=== PATIENT | male | born 1980 | race African-American/Black ===

== ENCOUNTER → 2016-09-21 | Outpatient (CLI) | payer OTHER ==
[~2016-09-21] MED LIST: BACTRIM DS TAB1 EACH PO; CIPRO500 MG PO; CIPROFLOXACIN500 M1 PO; CLONIDINE0.1 PO; FAMVIR500 MG PO; FOLIC ACID1 MG PO; LEVAQUIN 500 M500 MG PO; LIORESAL 10 MG10 MG PO; MACROBID 100 M100 M1 PO; MEDROL DOSPAK21 TAB PO; NOHOMEMEDICATIONS; NORCO 5-325 TA1 EACH PO; NORVASC 5 MG TAB5 MG PO; PERCOCET 5-3251 EACH PO; VITAMIN B-1100 M1 PO
== END ==
LOC: MRI 09-04 10:29
DX: S30.91XA Unspecified superficial injury of lower back and pelvis, initial encounter (principal); R60.9 Edema, unspecified

== ENCOUNTER → 2016-12-04 | Outpatient (CLI) | payer OTHER | LOC: HYPER 07:09 | DX: L89.313 Pressure ulcer of right buttock, stage 3 (principal); L89.153 Pressure ulcer of sacral region, stage 3; E43 Unspecified severe protein-calorie malnutrition; N31.9 Neuromuscular dysfunction of bladder, unspecified; G82.21 Paraplegia, complete; I10 Essential (primary) hypertension; Z87.891 Personal history of nicotine dependence; Z72.89 Other problems related to lifestyle ==

== ENCOUNTER → 2017-01-01 | Outpatient (CLI) | payer OTHER | LOC: HYPER 07:08 | DX: L89.313 Pressure ulcer of right buttock, stage 3 (principal); E43 Unspecified severe protein-calorie malnutrition; N31.9 Neuromuscular dysfunction of bladder, unspecified; G40.89 Other seizures; G82.21 Paraplegia, complete; I10 Essential (primary) hypertension; F14.90 Cocaine use, unspecified, uncomplicated; F12.90 Cannabis use, unspecified, uncomplicated; Z87.891 Personal history of nicotine dependence; Z72.89 Other problems related to lifestyle ==

== ENCOUNTER → 2017-01-30 | Outpatient (CLI) | payer OTHER | LOC: HYPER 07:03 | DX: L89.313 Pressure ulcer of right buttock, stage 3 (principal); E43 Unspecified severe protein-calorie malnutrition; N31.9 Neuromuscular dysfunction of bladder, unspecified; G40.89 Other seizures; G82.21 Paraplegia, complete; Z87.891 Personal history of nicotine dependence; Z72.89 Other problems related to lifestyle ==

== ENCOUNTER → 2017-03-26 | Outpatient (CLI) | payer OTHER | LOC: HYPER 07:04 | DX: L89.153 Pressure ulcer of sacral region, stage 3 (principal); L89.313 Pressure ulcer of right buttock, stage 3; E43 Unspecified severe protein-calorie malnutrition; N31.9 Neuromuscular dysfunction of bladder, unspecified; G40.89 Other seizures; G82.21 Paraplegia, complete; I10 Essential (primary) hypertension; E46 Unspecified protein-calorie malnutrition; Z87.891 Personal history of nicotine dependence; Z72.89 Other problems related to lifestyle; F12.90 Cannabis use, unspecified, uncomplicated ==

== ENCOUNTER 2017-04-19 12:20 | Emergency (ER) | payer OTHER ==
[~2017-04-19] VITALS: Ht 182.9 cm; Wt 61.2 kg
[2017-04-19] MEDS ORDERED: ROBAXIN 750 MG750 M1 PO (12:54)
[2017-04-19] MEDS ORDERED: OXYCONTIN10 M1 PO (12:54)
[2017-04-19] MEDS ORDERED: NEURONTIN 300300 M1 PO (12:54)
[2017-04-19] MEDS ORDERED: LISINOPRIL20 MG PO (12:55)
[2017-04-19 13:13] LABS: HEMATOCRIT 22.8 % (42.0-52.0); HEMOGLOBIN 7.6 gm/dL (14.0-18.0); MCH 27.8 pg (26.0-34.0); MCHC 33.1 g/dL (28.0-37.0); PLATELET COUNT 423 thou/uL (150-400); RBC 2.72 mil/uL (4.50-6.00); RDW 13.3 % (10.5-14.5); WBC 11.7 thou/uL (4.0-11.0)
[2017-04-19 13:18] LABS: MANUAL DIFF YES
[2017-04-19 13:25] LABS: ANION GAP 8 mmol/L (7-16); BUN 18 mg/dL (7-18); CALCIUM 8.9 mg/dL (8.5-10.1); CHLORIDE 100 mmol/L (98-107); CO2 24 mmol/L (21-32); CREATININE 1.1 mg/dL (0.7-1.3); GLUCOSE 93 mg/dL (74-106); POTASSIUM 4.8 mmol/L (3.5-5.1); SODIUM 132 mmol/L (136-145)
[2017-04-19 13:31] LABS: ABSOLUTE NEUTROPHILS 10.1 thou/uL (1.4-8.2); ALBUMIN 2.1 g/dL (3.4-5.0); ALKALINE PHOSPHATASE 116 U/L (46-116); PLATELET ESTIMATE INCREASED; SGOT 16 U/L (15-37); TOTAL BILIRUBIN 0.3 mg/dL (<0.1-1.0); TOTAL CELL COUNT 100
[2017-04-19 13:41] LABS: DIRECT BILIRUBIN < 0.1 mg/dL (<0.1-0.3); SGPT < 6 U/L (30-65)
[2017-04-19 15:06] LABS: URINE BILIRUBIN NEGATIVE (Negative); URINE BLOOD NEGATIVE (Negative); URINE COLOR YELLOW; URINE GLUCOSE-RANDOM* NEGATIVE (Negative); URINE KETONES NEGATIVE (Negative); URINE LEUKOCYTES-REFLEX 1+ (Negative); URINE PROTEIN (DIPSTICK) TRACE (Negative); URINE SPECIFIC GRAVITY 1.015 (1.003-1.035); URINE UROBILINOGEN 0.2 E.U./dl (0.2-1.0)
[2017-04-19 15:26] LABS: CASTS None Seen /LPF (None Seen); CRYSTALS None Seen /LPF (None Seen); SQUAMOUS None Seen /LPF (0-3); URINE RBC None Seen /HPF (0-2); URINE WBC-REFLEX 6-15 Few /HPF (0-5)
[2017-04-19] MEDS ORDERED: KEFLEX500 MG PO (15:44)
== END 2017-04-19 16:22 | disposition home or self-care (01) ==
LOC: ER 12:20
PROVIDERS: Emergency Medicine
DX: I95.9 Hypotension, unspecified (principal); N39.0 Urinary tract infection, site not specified; I10 Essential (primary) hypertension; Z87.440 Personal history of urinary (tract) infections; F10.99 Alcohol use, unspecified with unspecified alcohol-induced disorder; Z88.1 Allergy status to other antibiotic agents; F14.10 Cocaine abuse, uncomplicated

== ENCOUNTER → 2017-04-23 | Outpatient (CLI) | payer OTHER ==
[~2017-04-23] MED LIST changes: +KEFLEX500 MG PO; +LISINOPRIL20 MG PO; +NEURONTIN 300300 M1 PO; +OXYCONTIN10 M1 PO; +ROBAXIN 750 MG750 M1 PO
== END ==
LOC: HYPER 07:16
DX: L89.313 Pressure ulcer of right buttock, stage 3 (principal); L89.322 Pressure ulcer of left buttock, stage 2; G82.21 Paraplegia, complete; E43 Unspecified severe protein-calorie malnutrition; N31.9 Neuromuscular dysfunction of bladder, unspecified; I10 Essential (primary) hypertension; F14.10 Cocaine abuse, uncomplicated; F16.10 Hallucinogen abuse, uncomplicated; F12.10 Cannabis abuse, uncomplicated; F19.10 Other psychoactive substance abuse, uncomplicated; Z87.891 Personal history of nicotine dependence; Z72.89 Other problems related to lifestyle

== ENCOUNTER → 2017-05-28 | Outpatient (CLI) | payer OTHER ==
[~2017-05-28] MED LIST changes: +HYDROCHLOROTHIA25 M2 PO; +PREDNISONE 10 M10 M1 PO
== END ==
LOC: HYPER 07:08
DX: L89.313 Pressure ulcer of right buttock, stage 3 (principal); L89.322 Pressure ulcer of left buttock, stage 2; E43 Unspecified severe protein-calorie malnutrition; N31.9 Neuromuscular dysfunction of bladder, unspecified; G40.89 Other seizures; G82.21 Paraplegia, complete; Z87.891 Personal history of nicotine dependence; Z72.89 Other problems related to lifestyle

== ENCOUNTER 2017-05-29 18:48 | Emergency (ER) | payer OTHER ==
[~2017-05-29] VITALS: Ht 185.4 cm; Wt 61.2 kg
--- NOTE | ~2017-05-29 | EKG ---
[address] [address] ELECTROCARDIOGRAM REPORT Name: ADOLFO OSPINA Room #: DEP yJotsna#: [id number] Admission: 05/29/17 Attend Phys: Discharge: 05/29/17 Date of : 76 Report #: [id number] THIS REPORT FOR: //name// [facility] ED Test Date: 2017-05-29 Test Time: 19:17:44 Pat Name: ADOLFO OSPINA Department: Room: Gender: Rehab Director: SEKOU : 1980 Requested By: Adolfo Gray Order Number: [id number] MD: Quique Singh Measurements Intervals [place] Rate: 82 P: 75 GA: 134 QRS: 28 QRSD: 84 T: 40 QT: 370 QTc: 432 Interpretive Statements Sinus rhythm No significant abnormality No previous ECG available for comparison Electronically Signed On 05-30-2017 7:41:05 CDT by Quique Singh [email or web address] <ELECTRONICALLY SIGNED> By: Quique Singh MD, [facility] 05/30/17 0741 [id number] 16 Quique Singh MD, FACC /EPI
[~2017-05-29 18:48] MED LIST changes: -HYDROCHLOROTHIA25 M2 PO; -PREDNISONE 10 M10 M1 PO
[2017-05-29] MEDS ORDERED: PREDNISONE 10 M10 M1 PO (19:10)
[2017-05-29 19:40] LABS: BASOPHILS 0.6 % (0.0-2.0); HEMATOCRIT 30.4 % (42.0-52.0); MCH 27.6 pg (26.0-34.0); MCHC 32.9 g/dL (28.0-37.0); MONOCYTES 9.3 % (1.0-8.0); PLATELET COUNT 314 thou/uL (150-400); POLYS 75.1 % (36.0-66.0); RBC 3.62 mil/uL (4.50-6.00); RDW 14.8 % (10.5-14.5); WBC 10.7 thou/uL (4.0-11.0)
[2017-05-29 19:44] LABS: MANUAL DIFF NO
[2017-05-29 19:56] LABS: ANION GAP 6 mmol/L (7-16); BUN 14 mg/dL (7-18); CALCIUM 9.2 mg/dL (8.5-10.1); CHLORIDE 100 mmol/L (98-107); CO2 28 mmol/L (21-32); CREATININE 1.2 mg/dL (0.7-1.3); GLUCOSE 101 mg/dL (74-106); POTASSIUM 3.9 mmol/L (3.5-5.1); SODIUM 134 mmol/L (136-145)
[2017-05-29] MEDS ORDERED: HYDROCHLOROTHIA25 M2 PO (20:03)
[2017-05-29 20:04] LABS: TROPONIN-I < 0.04 ng/mL (<0.04-0.07)
[2017-05-29 20:47] LABS: URINE BILIRUBIN NEGATIVE (Negative); URINE BLOOD 1+ (Negative); URINE COLOR YELLOW; URINE GLUCOSE-RANDOM* NEGATIVE (Negative); URINE KETONES NEGATIVE (Negative); URINE PROTEIN (DIPSTICK) NEGATIVE (Negative); URINE UROBILINOGEN 0.2 E.U./dl (0.2-1.0)
[2017-05-29 20:48] LABS: URINE LEUKOCYTES-REFLEX 3+ (Negative)
[2017-05-29 20:54] LABS: CASTS None Seen /LPF (None Seen); SQUAMOUS >10 Many /LPF (0-3); URINE RBC 3-10 Few /HPF (0-2); URINE WBC-REFLEX >25 Many /HPF (0-5)
[2017-05-29 20:55] LABS: AMORPHOUS URATES Many /LPF (None Seen)
[2017-05-29 20:57] LABS: AMP/METHAMP Negative (Negative); BARBITURATES Negative (Negative); BENZODIAZEPINES Negative (Negative); COCAINE POSITIVE (Negative); METHADONE Negative (Negative); OPIATES POSITIVE (Negative); PCP POSITIVE (Negative); THC Negative (Negative)
== END 2017-05-29 21:21 | disposition home or self-care (01) ==
LOC: ER 18:48
PROVIDERS: Emergency Medicine
DX: G51.0 Bell's palsy (principal); I10 Essential (primary) hypertension; F10.99 Alcohol use, unspecified with unspecified alcohol-induced disorder; Z87.440 Personal history of urinary (tract) infections; Z88.1 Allergy status to other antibiotic agents

== ENCOUNTER → 2017-06-25 | Outpatient (CLI) | payer OTHER ==
[~2017-06-25] MED LIST changes: +HYDROCHLOROTHIA25 M2 PO; +PREDNISONE 10 M10 M1 PO
== END ==
LOC: HYPER 07:02
DX: L89.313 Pressure ulcer of right buttock, stage 3 (principal); L89.322 Pressure ulcer of left buttock, stage 2; G82.21 Paraplegia, complete; F19.10 Other psychoactive substance abuse, uncomplicated; F14.10 Cocaine abuse, uncomplicated; F12.10 Cannabis abuse, uncomplicated; Z72.89 Other problems related to lifestyle; Z87.891 Personal history of nicotine dependence

== ENCOUNTER → 2017-07-23 | Outpatient (CLI) | payer OTHER | LOC: HYPER 07:13 | DX: L89.153 Pressure ulcer of sacral region, stage 3 (principal); E43 Unspecified severe protein-calorie malnutrition; N31.9 Neuromuscular dysfunction of bladder, unspecified; G82.21 Paraplegia, complete; G40.89 Other seizures; I10 Essential (primary) hypertension; Z87.891 Personal history of nicotine dependence; Z72.89 Other problems related to lifestyle ==

== ENCOUNTER 2017-08-06 06:51 | Inpatient (IN) | payer OTHER ==
[~2017-08-06] VITALS: Ht 182.9 cm; Wt 61.2 kg
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
[2017-08-06 16:56] LABS: ABSOLUTE NEUTROPHILS 6.3 thou/uL (1.4-8.2); BASOPHILS 0.7 % (0.0-2.0); HEMATOCRIT 31.7 % (42.0-52.0); HEMOGLOBIN 10.2 gm/dL (14.0-18.0); LYMPHOCYTES 15.5 % (24.0-44.0); MANUAL DIFF NO; MCH 26.9 pg (26.0-34.0); MCHC 32.2 g/dL (28.0-37.0); MCV 83.3 fL (80.0-100.0); MONOCYTES 7.3 % (1.0-8.0); PLATELET COUNT 671 thou/uL (150-400); POLYS 75.5 % (36.0-66.0); RBC 3.81 mil/uL (4.50-6.00); RDW 14.9 % (10.5-14.5); WBC 8.3 thou/uL (4.0-11.0)
[2017-08-06 16:57] VITALS: BP 127/92
[2017-08-06 17:03] LABS: CALCIUM 9.4 mg/dL (8.5-10.1); CREATININE 0.9 mg/dL (0.7-1.3); POTASSIUM 4.4 mmol/L (3.5-5.1)
[2017-08-06 17:09] LABS: ALBUMIN 2.3 g/dL (3.4-5.0); TOTAL BILIRUBIN 0.1 mg/dL (<0.1-1.0); TOTAL PROTEIN 8.2 g/dL (6.4-8.2)
[2017-08-06 19:18] VITALS: BP 113/79
[2017-08-06 22:49] LABS: URINE BILIRUBIN NEGATIVE (Negative); URINE BLOOD TRACE (Negative); URINE COLOR YELLOW; URINE GLUCOSE-RANDOM* NEGATIVE (Negative); URINE KETONES NEGATIVE (Negative); URINE NITRITE POSITIVE (Negative); URINE PROTEIN (DIPSTICK) 1+ (Negative); URINE SPECIFIC GRAVITY 1.025 (1.005-1.035); URINE UROBILINOGEN 0.2 E.U./dl (0.2-1.0)
[2017-08-06 22:56] LABS: SQUAMOUS 4-10 Moderate /LPF (0-3)
[2017-08-06 22:57] LABS: BACTERIA >30 Many /HPF (None Seen); URINE RBC 3-10 Few /HPF (0-2); URINE WBC >25 Many /HPF (0-5)
[2017-08-06 22:58] LABS: CASTS None Seen /LPF (None Seen); CRYSTALS None Seen /LPF (None Seen)
[2017-08-07 03:25] VITALS: BP 122/86
[2017-08-07 08:26] VITALS: BP 109/80
[2017-08-07 16:31] VITALS: BP 87/53
[2017-08-07 19:35] VITALS: BP 100/82
[2017-08-08 03:50] VITALS: BP 122/81
[2017-08-08 06:44] LABS: ABSOLUTE NEUTROPHILS 2.6 thou/uL (1.4-8.2); BASOPHILS 0.8 % (0.0-2.0); EOSINOPHILS 3.5 % (0.0-3.0); HEMATOCRIT 28.7 % (42.0-52.0); HEMOGLOBIN 9.5 gm/dL (14.0-18.0); LYMPHOCYTES 27.5 % (24.0-44.0); MANUAL DIFF NO; MCH 27.6 pg (26.0-34.0); MCHC 33.1 g/dL (28.0-37.0); MCV 83.5 fL (80.0-100.0); PLATELET COUNT 613 thou/uL (150-400); POLYS 58.2 % (36.0-66.0); RBC 3.44 mil/uL (4.50-6.00); RDW 14.9 % (10.5-14.5); WBC 4.5 thou/uL (4.0-11.0)
[2017-08-08 06:57] LABS: CALCIUM 8.7 mg/dL (8.5-10.1); CREATININE 0.9 mg/dL (0.7-1.3); POTASSIUM 4.6 mmol/L (3.5-5.1)
[2017-08-08 08:24] VITALS: BP 107/75
[2017-08-08 16:12] VITALS: BP 107/72
[2017-08-08 20:58] VITALS: BP 112/74
[2017-08-09 05:50] LABS: ABSOLUTE NEUTROPHILS 4.1 thou/uL (1.4-8.2); BASOPHILS 0.7 % (0.0-2.0); EOSINOPHILS 2.5 % (0.0-3.0); HEMOGLOBIN 9.5 gm/dL (14.0-18.0); LYMPHOCYTES 21.2 % (24.0-44.0); MCH 27.4 pg (26.0-34.0); MCHC 32.7 g/dL (28.0-37.0); MCV 83.8 fL (80.0-100.0); MONOCYTES 8.5 % (1.0-8.0); PLATELET COUNT 584 thou/uL (150-400); POLYS 67.1 % (36.0-66.0); RBC 3.45 mil/uL (4.50-6.00); RDW 15.4 % (10.5-14.5); WBC 6.1 thou/uL (4.0-11.0)
[2017-08-09 05:51] LABS: MANUAL DIFF NO
[2017-08-09 06:04] LABS: CALCIUM 8.9 mg/dL (8.5-10.1); POTASSIUM 4.8 mmol/L (3.5-5.1)
[2017-08-09 07:19] VITALS: BP 122/85
[2017-08-09 15:55] VITALS: BP 113/73
[2017-08-09 20:11] VITALS: BP 111/68
[2017-08-10 04:49] VITALS: BP 125/85
[2017-08-10 06:06] LABS: ABSOLUTE NEUTROPHILS 4.6 thou/uL (1.4-8.2); BASOPHILS 0.8 % (0.0-2.0); EOSINOPHILS 2.4 % (0.0-3.0); HEMATOCRIT 29.4 % (42.0-52.0); HEMOGLOBIN 9.5 gm/dL (14.0-18.0); LYMPHOCYTES 23.3 % (24.0-44.0); MCH 27.5 pg (26.0-34.0); MCHC 32.4 g/dL (28.0-37.0); MCV 84.7 fL (80.0-100.0); MONOCYTES 7.2 % (1.0-8.0); PLATELET COUNT 565 thou/uL (150-400); POLYS 66.3 % (36.0-66.0); RBC 3.47 mil/uL (4.50-6.00); RDW 15.6 % (10.5-14.5)
[2017-08-10 06:12] LABS: MANUAL DIFF NO
[2017-08-10 06:26] LABS: CALCIUM 8.8 mg/dL (8.5-10.1); CREATININE 0.9 mg/dL (0.7-1.3); POTASSIUM 4.6 mmol/L (3.5-5.1)
[2017-08-10 07:20] VITALS: BP 116/78
[2017-08-10 08:45] VITALS: BP 116/78
[2017-08-10 15:15] VITALS: BP 120/76
[2017-08-10 20:25] VITALS: BP 127/70
[2017-08-11 07:25] VITALS: BP 115/86
[2017-08-11 15:30] VITALS: BP 121/83
[2017-08-11 19:50] VITALS: BP 121/78
[2017-08-12 05:18] VITALS: BP 112/80
[2017-08-12 07:50] VITALS: BP 122/82
[2017-08-12 16:52] VITALS: BP 107/67
[2017-08-12 19:35] VITALS: BP 104/67
[2017-08-13 05:25] VITALS: BP 119/86
[2017-08-13 07:22] VITALS: BP 124/77
[2017-08-13 15:42] VITALS: BP 98/81
== END 2017-08-13 18:01 | DRG 592 ==
LOC: HYPER 06:51 → 4S 15:34
PROVIDERS: Family Medicine; Nurse Practitioner
DX: L89.214 Pressure ulcer of right hip, stage 4 (principal); E43 Unspecified severe protein-calorie malnutrition; M86.8X6 Other osteomyelitis, lower leg; G82.20 Paraplegia, unspecified; Z68.1 Body mass index [BMI] 19.9 or less, adult; F12.10 Cannabis abuse, uncomplicated; N31.9 Neuromuscular dysfunction of bladder, unspecified; I10 Essential (primary) hypertension; G51.0 Bell's palsy; B95.1 Streptococcus, group B, as the cause of diseases classified elsewhere; B95.61 Methicillin susceptible Staphylococcus aureus infection as the cause of diseases classified elsewhere; B96.6 Bacteroides fragilis [B. fragilis] as the cause of diseases classified elsewhere; Z87.828 Personal history of other (healed) physical injury and trauma; Z99.3 Dependence on wheelchair; Z87.891 Personal history of nicotine dependence; Z93.3 Colostomy status; Z88.1 Allergy status to other antibiotic agents; Z82.49 Family history of ischemic heart disease and other diseases of the circulatory system; Z80.8 Family history of malignant neoplasm of other organs or systems; Z83.3 Family history of diabetes mellitus; Z28.21 Immunization not carried out because of patient refusal
CPT/HCPCS: 10102

== ENCOUNTER 2017-12-02 20:46 | Emergency (ER) | payer OTHER ==
[~2017-12-02] VITALS: Ht 185.4 cm; Wt 61.2 kg
[2017-12-02] MEDS ORDERED: OXYCONTIN20 M1 PO (21:25)
== END 2017-12-02 23:03 | disposition home or self-care (01) ==
LOC: ER 20:46
DX: M25.551 Pain in right hip (principal); G82.20 Paraplegia, unspecified; I10 Essential (primary) hypertension; Z88.1 Allergy status to other antibiotic agents

== ENCOUNTER → 2018-07-28 | Outpatient (CLI) | payer OTHER ==
[~2018-07-28] MED LIST changes: +OXYCONTIN20 M1 PO
== END ==
LOC: HYPER 07-07 07:14
DX: L89.313 Pressure ulcer of right buttock, stage 3 (principal); G82.21 Paraplegia, complete; I10 Essential (primary) hypertension; E46 Unspecified protein-calorie malnutrition; M19.90 Unspecified osteoarthritis, unspecified site; F14.10 Cocaine abuse, uncomplicated; Z87.891 Personal history of nicotine dependence

== ENCOUNTER → 2018-10-27 | Outpatient (CLI) | payer OTHER | LOC: HYPER 07:04 | DX: L89.313 Pressure ulcer of right buttock, stage 3 (principal); E46 Unspecified protein-calorie malnutrition; G82.21 Paraplegia, complete; I10 Essential (primary) hypertension; M19.90 Unspecified osteoarthritis, unspecified site; F14.10 Cocaine abuse, uncomplicated; F12.10 Cannabis abuse, uncomplicated; Z87.891 Personal history of nicotine dependence ==

== ENCOUNTER → 2018-12-29 | Outpatient (CLI) | payer OTHER | LOC: HYPER 06:43 | DX: L89.313 Pressure ulcer of right buttock, stage 3 (principal); G82.21 Paraplegia, complete; I10 Essential (primary) hypertension; M19.90 Unspecified osteoarthritis, unspecified site; F14.10 Cocaine abuse, uncomplicated; F12.10 Cannabis abuse, uncomplicated; Z87.891 Personal history of nicotine dependence ==

== ENCOUNTER 2019-01-16 13:18 | Emergency (ER) | payer OTHER ==
[~2019-01-16] VITALS: Ht 182.9 cm; Wt 61.2 kg
[2019-01-16 14:12] LABS: URINE BILIRUBIN NEGATIVE (Negative); URINE BLOOD 2+ (Negative); URINE COLOR YELLOW; URINE GLUCOSE-RANDOM* NEGATIVE (Negative); URINE KETONES 1+ (Negative); URINE NITRITE-REFLEX NEGATIVE (Negative); URINE PROTEIN (DIPSTICK) 1+ (Negative); URINE UROBILINOGEN 0.2 E.U./dl (0.2-1.0)
[2019-01-16 14:13] LABS: URINE CLARITY HAZY; URINE LEUKOCYTES-REFLEX 3+ (Negative)
[2019-01-16 14:19] LABS: BACTERIA-REFLEX >30 Many /HPF (None Seen); CASTS None Seen /LPF (None Seen); CRYSTALS None Seen /LPF (None Seen); SQUAMOUS None Seen /LPF (0-3); URINE RBC 3-10 Few /HPF (0-2); URINE WBC-REFLEX >25 Many /HPF (0-5)
[2019-01-16 14:33] LABS: HEMATOCRIT 42.5 % (42.0-52.0); MCH 28.3 pg (26.0-34.0); MCV 85.7 fL (80.0-100.0); RBC 4.95 mil/uL (4.50-6.00); RDW 13.7 % (10.5-14.5); WBC 8.7 thou/uL (4.0-11.0)
[2019-01-16 14:40] LABS: CALCIUM 9.8 mg/dL (8.5-10.1); CREATININE 0.9 mg/dL (0.7-1.3); POTASSIUM 3.6 mmol/L (3.5-5.1)
[2019-01-16] MEDS ORDERED: AUGMENTIN 875-1 EACH PO (14:45)
[2019-01-16] MEDS ORDERED: FLOMAX0.4 MG PO (14:45)
[2019-01-16 15:15] VITALS: BP 149/94
== END 2019-01-16 15:15 | disposition home or self-care (01) ==
LOC: ER 13:18
PROVIDERS: Emergency Medicine
DX: N39.0 Urinary tract infection, site not specified (principal); R33.9 Retention of urine, unspecified; G82.20 Paraplegia, unspecified; N31.8 Other neuromuscular dysfunction of bladder; I10 Essential (primary) hypertension; Z88.1 Allergy status to other antibiotic agents

== ENCOUNTER → 2019-01-26 | Outpatient (CLI) | payer OTHER ==
[~2019-01-26] MED LIST changes: +AUGMENTIN 875-1 EACH PO; +FLOMAX0.4 MG PO
== END ==
LOC: HYPER 07:01
DX: L89.313 Pressure ulcer of right buttock, stage 3 (principal); G82.21 Paraplegia, complete; I10 Essential (primary) hypertension; R56.9 Unspecified convulsions; M19.90 Unspecified osteoarthritis, unspecified site; F12.90 Cannabis use, unspecified, uncomplicated; Z87.891 Personal history of nicotine dependence; F19.10 Other psychoactive substance abuse, uncomplicated

== ENCOUNTER → 2019-02-18 | Outpatient (CLI) | payer OTHER | LOC: HYPER 02-10 15:23 | DX: L89.313 Pressure ulcer of right buttock, stage 3 (principal); G82.21 Paraplegia, complete; I10 Essential (primary) hypertension; M19.90 Unspecified osteoarthritis, unspecified site; F19.10 Other psychoactive substance abuse, uncomplicated; Z87.891 Personal history of nicotine dependence ==

== ENCOUNTER 2019-03-04 06:31 | Inpatient (IN) | payer OTHER ==
[~2019-03-04] VITALS: Ht 182.9 cm; Wt 48.3 kg
[2019-03-04 16:25] VITALS: BP 130/92
[2019-03-04 16:58] LABS: ABSOLUTE NEUTROPHILS 6.2 thou/uL (1.4-8.2); BASOPHILS 0.5 % (0.0-2.0); EOSINOPHILS 1.3 % (0.0-3.0); HEMATOCRIT 41.4 % (42.0-52.0); HEMOGLOBIN 13.6 gm/dL (14.0-18.0); MCH 28.4 pg (26.0-34.0); MCHC 32.9 g/dL (28.0-37.0); MCV 86.1 fL (80.0-100.0); MONOCYTES 9.6 % (1.0-8.0); PLATELET COUNT 298 thou/uL (150-400); POLYS 71.6 % (36.0-66.0); RDW 13.6 % (10.5-14.5); WBC 8.6 thou/uL (4.0-11.0)
[2019-03-04 17:15] LABS: ALBUMIN 3.4 g/dL (3.4-5.0); CALCIUM 10.2 mg/dL (8.5-10.1); CREATININE 0.7 mg/dL (0.7-1.3); MAGNESIUM 2.3 mg/dL (1.8-2.4); POTASSIUM 4.8 mmol/L (3.5-5.1); TOTAL BILIRUBIN 0.2 mg/dL (<0.1-1.0); TOTAL PROTEIN 9.1 g/dL (6.4-8.2)
--- NOTE | 2019-03-04 18:03 | NUR ---
PT ARRIVED AT 1645 OLEARY CATH CHANGED AND COLOSTOMY BAG CHANGED WILL COLLECT UA WOUND PICTURES OF ISCHIAL / SACRUM TAKEN. PT SERVED DINNER, TX TO ISCHIAL WITH WET TO DRY. DR GARNETT HERE TO SEE PATIENT.
[2019-03-04 18:28] LABS: URINE BILIRUBIN NEGATIVE (Negative); URINE BLOOD NEGATIVE (Negative); URINE CLARITY CLEAR; URINE COLOR YELLOW; URINE GLUCOSE-RANDOM* NEGATIVE (Negative); URINE KETONES NEGATIVE (Negative); URINE LEUKOCYTES-REFLEX 2+ (Negative); URINE NITRITE-REFLEX NEGATIVE (Negative); URINE PROTEIN (DIPSTICK) NEGATIVE (Negative); URINE UROBILINOGEN 0.2 E.U./dl (0.2-1.0)
[2019-03-04 18:36] LABS: AMORPHOUS PHOSPHATES Moderate /LPF (None Seen); BACTERIA-REFLEX None Seen /HPF (None Seen); COARSE GRANULAR CASTS 0-3 Few /LPF (None Seen); SQUAMOUS 0-3 Few /LPF (0-3); URINE RBC 0-2 Rare /HPF (0-2); URINE WBC-REFLEX 6-15 Few /HPF (0-5)
[2019-03-04 19:39] VITALS: BP 122/86
--- NOTE | 2019-03-05 03:38 | NUR ---
ASSUMED PT CARE 1899. PT ALERT AND ORIENTED. REASSESSMENT COMPLETE, VSS. PRAFO BOOTS APPLIED. PT REPORTS PAIN, SEE EMAR. DONIS N/V. TURNS SELF IN BED. CALL LIGHT AND PERSONAL BELONIONGS WITHIN REACH. WILL CONTINUE POC UNTIL EOS.
[2019-03-05 04:54] VITALS: BP 100/69
--- NOTE | 2019-03-05 07:50 | NUR ---
PATIENT CARE WAS ASSUMED AT 0715.PATIENT IS ALERT AND ORIENTED X4,IT TAKES SOME TIME FOR PATIENT TO PROCESS WHAT IS BEING SAID.PATIENT HAS NO COMPLAINS OF PAIN AT THIS TIME.NO IV ACCESS.IV TEAM WAS CALLED FOR IV START.PATIENT IS ABLE TO TURN ON HIS OWN.PATIENT IS ENCOURAGED TO USE BOOTS TO KEEP HEELS ELEVATED.PT HAS CALL LIGHT,PHONE, AND PERSONAL BELONGINGS WITHIN REACH.
[2019-03-05 08:02] VITALS: BP 137/93
[2019-03-05 08:06] VITALS: BP 74/49
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
--- NOTE | 2019-03-05 14:16 | NUR ---
Nutrition: pt admit with ischial wound. Hx paraplegia, prior flap for wound and diverting colostomy. Weight taken on admit 106# error. Pt reports stable weights around 135#. BMI low at 17.0. Good appetite, eating 100% of meals. Reviewed protein needs. RD will offer Feliberto BID and ensure max/ensure enlive supplements daily. Encouraged using protein supplements at home as pt generally does not do so. Consider low risk with interventions in place.
--- NOTE | 2019-03-05 14:41 | NUR ---
PATIENT WAS VERY UPSET TODAY ABOUT NOT BEING ABLE TO GO OUTSIDE AND SMOKE TODAY.PATIENT WAS EDUCATED ON THE NON-SMOKING FACILITY POLICY.SECURITY HAD TO BE CALLED SEVERAL TIMES TO CALM PATIENT DOWN.PATIENT'S MOTHER WAS CALLED AFTER PATIENT STATED HE WANTED TO SIGN HIMSELF OUT OF THE HOSPITAL.MOTHER TALKED PATIENT INTO STAYING IN THE HOSPITAL AND CALMING DOWN.PATIENT IS CALM AAT THIS TIME, WILL CONTINUE TO MONITOR PATIENT.
[2019-03-05 16:05] VITALS: BP 98/68
[2019-03-05 19:20] VITALS: BP 83/51
[2019-03-06 00:01] VITALS: BP 89/52; BP 98/42
--- NOTE | 2019-03-06 03:30 | NUR ---
ASSUMDE PT CARE 190. PT ALERT AND ORIENTED. REASSESSMENT COMPLETED. VSS. BP LOW, ORDERS FOR 500CC BOLUS, REPEAT SBP <90, REPEAT ORDER FOR 500CC BOLUS. PT REPORTS PAIN, SEE EMAR. DENIES N/V. NEW IV INSERTED. CALL LIGHT WITHIN REACH. WILL OCNTINUE POC UNTIL EOS.
[2019-03-06 04:45] VITALS: BP 90/64
[2019-03-06 07:57] VITALS: BP 95/56
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
[2019-03-06 12:49] VITALS: BP 99/69
--- NOTE | 2019-03-06 13:27 | NUR ---
Assumed care of pt at 0700. Pt a&o x4. Pt underwent I&D procedure this am. Pt back from PACU approx 1300. Wound vac in place. Prn pain meds admnisitered for pain 03/04. Pt eating lunch at this time. Family at bedside. Lopez catheter and colostomy in place. Fall precautions in place. Will continue to monitor and assist with needs.
--- NOTE | 2019-03-06 14:39 | NUR ---
FAXED REFERRAL TO [facility] SPOKE WITH WANDA IN ADM SHE IS COVERING FOR JONATAN IN ADM SHE RECEIVED REFERRAL AND QUYNH WILL POSS. BE ABLE TO DO ONSITE EVAL THIS WEEKEND OR JONATAN WILL SEE PT ON SATURDAY AM. DCP TO FOLLOW.
[2019-03-06 15:48] VITALS: BP 104/65
[2019-03-07 05:03] VITALS: BP 95/54
[2019-03-07 08:22] VITALS: BP 95/59
--- NOTE | 2019-03-07 17:21 | NUR ---
PT ASSESSED AT START OF SHIFT. TURNING Q2HRS. WOUND VAC IN PLACE W/ GOOD SUCTION. C/O GENERALIZED ITCHING -BENEDRYL ORDERED AND GIVEN. PAIN MED HELPING.
[2019-03-07 20:30] VITALS: BP 106/63
[2019-03-08 04:45] VITALS: BP 94/52
--- NOTE | 2019-03-08 04:59 | NUR ---
ASSUMED CARE AT 1900, ASSESSMENT COMPLETED. PT C/O GENERALIZED CRAMPING AND BILATERAL LOWER LEG PAIN; GIVEN NORCO OVERNIGHT. ALSO REPORTS MILD ITCHING, GIVEN PO BENADRYL ONCE OVERNIGHT. DENIES SOB OR NAUSEA. WOUND VAC DRAINING DARK BROWN/RED FLUID, CANNISTER OVER 3/4 FULL. REINFORCED WOUND VAC WITH TWO TEGADERMS IT WAS BECOMING LOOSE AROUND THE UPPER BUTTOCK AREA, LIKELY FROM PT MOVING AROUND AND SCRATCHING. OLEARY DRAINING DARK MORE URINE. NO OTHER CONCERNS, WILL CONTINUE TO MONITOR.
[2019-03-08 07:21] VITALS: BP 94/58
--- NOTE | 2019-03-08 16:24 | NUR ---
PT ASSESSED AT START OF SHIFT. WOUND VAC DC'D PATIENT DSNG CAME DISLOGED FROM HIS MOVING AROUND IN THE BED. WORKED W/ HIM ON LIFTING HIS BODY MORE WHEN MOVES AROUND AND HE IS ABLE TO DO THAT W/O DIFFICULTY HE HAS VERY STRONG UPPER BODY. WET TO DRY DSNG APPLIED AND WOUND VAC OFF -WOUND RN WILL REAPPLY TOMORROW. EATING AND DRINKING WELL. NAPPED SOME THIS AFTERNOON. PAIN MED FOR LEG SPASM PAIN. COLOSTOMY BAG CHANGED AFTER LARGE SOFT BM.
[2019-03-08 17:06] VITALS: BP 91/68
[2019-03-08 20:24] VITALS: BP 97/69
--- NOTE | 2019-03-09 00:37 | NUR ---
PT DRSG TO R IT WAS SOAKED WITH DRAINAGE-THEREFORE CHANGED. PT REPOSITIONS SELF IN BED USING HIS UPPER BODY STRENGTH. REQUIRES MINIMAL ASSIST. COLOSTOMY WITH GOOD OUTPUT. OLEARY TO D/D ALSO WITH DARK YELLOW URINE. PT IS AFEBRILE.BP ON THE LOWER SIDE-PT IS ASYMTOMATIC. CALLS WITH NEEDS.
[2019-03-09 05:03] VITALS: BP 90/61
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
[2019-03-09 07:45] VITALS: BP 104/61
--- NOTE | 2019-03-09 11:19 | NUR ---
ASSESMENT COMPLETED. VSS. A/O. PAIN MANAGED BY MEDS ORDERED. NO NOTED SOA. NO NV. PT RESTING IN BED ABLE TO RESPOSITION SELF- MINIMAL ASSISTANCE. COLOSTOMY APPLIANCE CHANGED BY MARGARETH ROBBINS THIS AM. ANIRUDH TO REINALDO. PT RESTING IN BED. APEPARS COMFORTABLE. NO CONCERNS AT THIS TIME. WILL CONT. TO MONITOR.
--- NOTE | 2019-03-09 12:29 | NUR ---
WOUND CARE FOLLOW UP; ROUNDING WITH KIMMY UI SOFTWARE ENGINEER AND NELI SUPERVISOR ASSEMBLY ROOM. THIS PATIENT IS S/P SURGICAL DEBRIDEMENT OF THE RIGHT ISCHIAL TUBEROSITY WITH PRIMATRIX GRAFT PLACEMENT ON 03/06/2019. THE WOUND BED HAS NO ODOR WITH HEALTH RED TISSE ALTHOUGH BONE IS EXPOSED. RECOMMENDATIONS; CONTINUE CURRENT PLAN OF CARE WITH VAC THERAPY. DISCUSSED WITH ITZEL
--- NOTE | 2019-03-09 14:34 | NUR ---
FAXED REFERRAL TO [facility] SPOKE WITH ADM THEY RECEIVED REFERRAL AND WILL SUBMIT FOR AUTH. FAXED REFERRAL TO [facility] [place] SPOKE WITH LINDA THAT PT MIGHT NEED SKILLED IF NOT ACCEPTED AT [facility]. DCP TO FOLLOW.
[2019-03-09] MEDS ORDERED: HYDROCODON-ACE1 EAC7 PO (15:48)
[2019-03-09] MEDS ORDERED: MIRALAX17 GM PO (15:49)
[2019-03-09] MEDS ORDERED: PROBIOTIC1 EAC1 PO (15:49)
[2019-03-09] MEDS ORDERED: PROTONIX 20 MG20 M1 PO (15:49)
[2019-03-09] MEDS ORDERED: BANOPHEN25 M1 PO (15:49)
[2019-03-09] MEDS ORDERED: ZOSYN 3.3753.375 GM IV (15:50)
--- NOTE | 2019-03-09 15:59 | NUR ---
CARE TEAM WAS NOTIFIED THAT PT IS ACCEPTED TO [facility] THIS DAY. CARE TEAM INDICATED THAT PT IS MEDICALLY STABLE TO DC THERE TODAY. PT IS AWARE AND IS AGREEABLE BUT STARTED COMPLAINING OF CHEST PAIN SHORTLY AFTER BEING INFORMED. CM ARRANGED [facility]SPORT TO TAKE PT TO [place] BETWEEN [phone]. CHART COPY ORDERED. ORDERS TO BE FAXED. REPORT TO BE CALLED TO . NURSE ENGINEERING FACULTY MEMBER CALLED P'S MOTHER TO SEE IF SHE CAN PROTOTYPE ENGINEER MANAGER HIS WHEELCHAIR AND TRANSPORT IT TO [place]. SHE LEFT A VM SHOULD WE NOT HEAR BACK FROM HER WE MAY REQUEST PERMISSION TO HAVE [facility] WC. TESTS WERE ORDERED RELATED TO PT'S CHEST PAIN. AWAITING FURTHER DIRECTION.
--- NOTE | 2019-03-09 16:06 | PATH ---
[facility] [address] [address] PATHOLOGY RPT PROCEDURE Name: ADOLFO OSPINA Room #: 423-1 ADM IN M.R.#: [id number] ������������������ Admission: 03/04/19 ������������������ Date of : 76 Discharge: Report #: [id number] Path Case #: [id number] LCA Accession Number: [id number] . 01 Material submitted: . PART A: pelvic bone - RIGHT ISCHIAL WOUND. Modifiers: right PART B: pelvic bone - RIGHT ISCHIAL BONE. Modifiers: right . 01 Clinical history: . Gluteal decubitus . 02 Diagnosis: A. Right ischial wound, debridement with irrigation: - Skin and subcutaneous tissue with marked acute inflammation, ulceration and fibrinoid degeneration, consistent with debridement tissue. . B. Bone, right ischial bone, debridement: - Fragments of bone with marked acute and chronic osteomyelitis. - Fragments of granulation tissue, compatible with debridement tissue. . (WOODV:liz; 03/09/2019) MBR/03/09/2019 . 02 Electronically signed: . Maureen Washington MD, Pathologist NPI- [id number] . 01 Gross description: . A. The specimen is received in formalin, labeled "Adolfo Ospina, right ischial wound". Received is a segment of pink-silva to yellow-silva soft tissue with attached pink-silva to alcantar-brown, necrotic-appearing skin measuring 11.0 x 6.5 x 1.9 cm in greatest dimensions. The specimen is submitted representatively in cassette A1. . B. The specimen is received in formalin, labeled "Adolfo Ospina, right ischial bone". Received are multiple segments of light silva bone admixed with pink-sivla soft tissue measuring 0.2 x 2.8 x 0.6 cm in aggregate dimensions. The specimen is submitted representatively in cassette B1, following decalcification. (CAA; 03/06/2019) QAC/QAC . 02 Pathologist provided ICD-10: L08.9, L98.499, M86.9 . 02 CPT . [id number], [id number], [id number] [place] [address] PATHOLOGY RPT PROCEDURE Name: ADOLFO OSPINA Room #: 423-1 ADM IN M.R.#: [id number] ������������������ Admission: 03/04/19 ������������������ Date of : 76 Discharge: Report #: [id number] Path Case #: [id number] Specimen Comment: A courtesy copy of this report has been sent to Specimen Comment: [phone], , . Specimen Comment: Report sent to ,DR MELCHOR / DR SHERIDAN Performed at: [address], [place], [place] [id number] MD Claus Lindsey MD Phone: [phone] Performed at: [address] [id number] MD Maureen Washington MD Phone: [phone]
[2019-03-09 16:11] VITALS: BP 102/68
--- NOTE | 2019-03-09 16:27 | NUR ---
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
--- NOTE | 2019-03-09 17:55 | NUR ---
APPROX 1550. PT C/O CHEST PAIN. DATABASE ADMINISTRATION PROJECT MANAGER ACTIVATED SEE FLOWSHEET AND ORDERS. PT TRANSFERRED TO 3 WITH BELONGINGS.
--- NOTE | 2019-03-09 18:05 | NUR ---
Assumed care at approx. 1645 this evening. Patient transferred to [facility] for closer monitoring as patient has been complaining of chest pain. Patient appears to be in no distress. 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
[2019-03-09 19:31] VITALS: BP 129/81
[2019-03-10 04:43] VITALS: BP 119/90
--- NOTE | 2019-03-10 06:43 | NUR ---
PT SHOULD DC TODAY TO [facility] PER CM. FOLLOW POC WITH IVPB ANTIBIOTICS. ORAL PAIN MEDICATION GIVEN 2X. PT HAS VAST AMOUNTS OF URINE OUTPUT WITH 2000+ML. ISOLATION PRECAUTIONS BEING FOLLOWED. PT HAS ABILITY TO TURN HIMSELF AND REFUSES Q2 TURNS. HOURLY ROUNDING.
[2019-03-10 08:04] VITALS: BP 105/70
[2019-03-10 09:37] LABS: HEMATOCRIT 33.4 % (42.0-52.0); HEMOGLOBIN 10.8 gm/dL (14.0-18.0); MCH 28.7 pg (26.0-34.0); MCHC 32.5 g/dL (28.0-37.0); MCV 88.3 fL (80.0-100.0); RBC 3.78 mil/uL (4.50-6.00); RDW 13.6 % (10.5-14.5); WBC 7.7 thou/uL (4.0-11.0)
[2019-03-10 09:41] LABS: CREATININE 0.8 mg/dL (0.7-1.3); POTASSIUM 4.3 mmol/L (3.5-5.1)
[2019-03-10 15:27] VITALS: BP 106/59
--- NOTE | 2019-03-10 15:56 | EKG ---
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 JAMES : 1980 Requested By: Solis White Order Number: [id number] MD: Clay Christine Measurements Intervals [place] Rate: 67 P: 66 NM: 133 QRS: -7 QRSD: 95 T: 24 QT: 386 QTc: 408 Interpretive Statements Sinus rhythm ST elev, probable normal early repol pattern Baseline wander in lead(s) II Compared to ECG 05/29/2017 19:17:44 ST (T wave) deviation now present Electronically Signed On 03-10-2019 15:56:27 CDT by Clay Christine [email or web address] ��������������������������������������������� <ELECTRONICALLY SIGNED> ���������������������������������������� By: Clay Christine MD ��������������������������������������������� 03/10/19 1556 1609 1609 Clay Christine MD /EPI
--- NOTE | 2019-03-10 16:04 | EKG ---
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 : 1980 Requested By: Matilde Haddad Order Number: [id number] MD: Clay Christine Measurements Intervals [place] Rate: 62 P: 82 GA: 145 QRS: 3 QRSD: 105 T: 35 QT: 411 QTc: 418 Interpretive Statements Sinus rhythm ST elev, probable normal early repol pattern Compared to ECG 05/29/2017 19:17:44 ST (T wave) deviation now present Electronically Signed On 03-10-2019 16:04:15 CDT by Clay Christine [email or web address] ��������������������������������������������� <ELECTRONICALLY SIGNED> ���������������������������������������� By: Clay Christine MD ��������������������������������������������� 03/10/19 1604 0823 2 Clay Christine MD /ROYER
--- NOTE | 2019-03-10 16:22 | NUR ---
EMMA reviewed chart and spoke with nursing and attending physician. Pt's discharge yesterday was cancelled due to pt having chest pain. DIRECTOR LIFE SCIENCES initiated. Pt was transferred to from . Nuclear stress test completed this afternoon. Attending physician states if stress test negative, pt can discharge to [facility] today. EMMA updated [facility] liaison, who confirms they are able to accept pt pending stress test results. Pt will need ambulance transportation. Ambulance form faxed to [facility] and placed on pt's chart. Chart copy requested. Awaiting final discharge orders at this time. EMMA is following to assist as needed with discharge planning. [facility]-- [facility]--
--- NOTE | 2019-03-10 20:10 | NUR ---
ASSUMED CARE OF PT AT APPROX 0700. PT IS LAERT AND ORIENTED X4, MONITORED ON TELE AND ABLE TO MAINTAIN 02 SAT >90 ON RA. COMPLAINS OF PAIN THAT IS TREATED WITH PRN PAIN MEDICATION. RECEIVED ORDER FOR DC. COMPLETED DC. PT LEFT VIA [facility] AT APPROX 1930. REPORT CALLED X2 AFTER PATIENT DEPARTURE WITH NO ANSWER. PT HAS MET POC GOALS OF DC.
== END 2019-03-10 20:16 | DRG 580 ==
LOC: HYPER 06:31 → 4E 15:34 → 3W 03-09 17:11
PROVIDERS: Internal Medicine; Nurse Practitioner; ADMIT Internal Medicine
PROC: 0QD20ZZ Extraction of Right Pelvic Bone, Open Approach (ICD-10-PCS; principal; 2019-03-06)
PROC: 0QB20ZZ Excision of Right Pelvic Bone, Open Approach (ICD-10-PCS; principal; 2019-03-06)
PROC: 0QU Lower Bones, Supplement (ICD-10-PCS; principal; 2019-03-06)
DX: L89.154 Pressure ulcer of sacral region, stage 4 (principal); G82.20 Paraplegia, unspecified; N39.0 Urinary tract infection, site not specified; E44.1 Mild protein-calorie malnutrition; Z68.1 Body mass index [BMI] 19.9 or less, adult; M86.68 Other chronic osteomyelitis, other site; L89.314 Pressure ulcer of right buttock, stage 4; R07.9 Chest pain, unspecified; F19.10 Other psychoactive substance abuse, uncomplicated; B96.5 Pseudomonas (aeruginosa) (mallei) (pseudomallei) as the cause of diseases classified elsewhere; I10 Essential (primary) hypertension; G51.0 Bell's palsy; N31.9 Neuromuscular dysfunction of bladder, unspecified; R33.9 Retention of urine, unspecified; Z93.3 Colostomy status; Z82.49 Family history of ischemic heart disease and other diseases of the circulatory system; Z83.3 Family history of diabetes mellitus; Z80.9 Family history of malignant neoplasm, unspecified; Z88.1 Allergy status to other antibiotic agents; Z79.899 Other long term (current) drug therapy; Z99.3 Dependence on wheelchair
CPT/HCPCS: 10779; 10783; 10879; 50010; 50101; 50366; 50386; 50403; 50643; 51412; 56524; 57119; 57120; 57143; 62110; 62900; 70005

== ENCOUNTER 2019-03-21 03:31 | Inpatient (IN) | payer OTHER ==
[~2019-03-21] VITALS: Ht 182.9 cm; Wt 61.2 kg
[2019-03-21 03:31] VITALS: BP 129/98
[~2019-03-21 03:31] MED LIST changes: +BANOPHEN25 M1 PO; +HYDROCODON-ACE1 EAC7 PO; +MIRALAX17 GM PO; +PROBIOTIC1 EAC1 PO; +PROTONIX 20 MG20 M1 PO; +ZOSYN 3.3753.375 GM IV
[2019-03-21 04:35] LABS: BASOPHILS 0.7 % (0.0-2.0); EOSINOPHILS 1.4 % (0.0-3.0); HEMATOCRIT 35.4 % (42.0-52.0); HEMOGLOBIN 11.9 gm/dL (14.0-18.0); LYMPHOCYTES 17.4 % (24.0-44.0); MCH 29.2 pg (26.0-34.0); MCHC 33.7 g/dL (28.0-37.0); MCV 86.8 fL (80.0-100.0); MONOCYTES 9.2 % (1.0-8.0); PLATELET COUNT 419 thou/uL (150-400); POLYS 71.3 % (36.0-66.0); RBC 4.08 mil/uL (4.50-6.00); RDW 13.6 % (10.5-14.5); WBC 8.4 thou/uL (4.0-11.0)
[2019-03-21 04:39] LABS: CREATININE 0.7 mg/dL (0.7-1.3); POTASSIUM 3.7 mmol/L (3.5-5.1)
[2019-03-21 04:45] LABS: ALBUMIN 2.5 g/dL (3.4-5.0); TOTAL BILIRUBIN 0.3 mg/dL (<0.1-1.0); TOTAL PROTEIN 8.2 g/dL (6.4-8.2)
[2019-03-21 04:51] LABS: URINE BILIRUBIN NEGATIVE (Negative); URINE BLOOD TRACE (Negative); URINE CLARITY CLEAR; URINE COLOR YELLOW; URINE GLUCOSE-RANDOM* NEGATIVE (Negative); URINE KETONES NEGATIVE (Negative); URINE PROTEIN (DIPSTICK) TRACE (Negative); URINE UROBILINOGEN 0.2 E.U./dl (0.2-1.0)
[2019-03-21 04:54] LABS: URINE LEUKOCYTES-REFLEX 2+ (Negative); URINE NITRITE-REFLEX POSITIVE (Negative)
[2019-03-21 04:58] LABS: CASTS None Seen /LPF (None Seen); MUCUS 4-6 Moderate strn/LPF (None Seen); SQUAMOUS 4-10 Moderate /LPF (0-3)
[2019-03-21 04:59] LABS: BACTERIA-REFLEX >30 Many /HPF (None Seen); CRYSTALS None Seen /LPF (None Seen); TRANSITIONAL EPITHEL CELL 0-3 Few /LPF (None Seen); URINE RBC 0-2 Rare /HPF (0-2); URINE WBC-REFLEX >25 Many /HPF (0-5); WBC CLUMPS Packed (None Seen)
[2019-03-21 06:19] LABS: AMP/METHAMP Negative (Negative); BARBITURATES Negative (Negative); BENZODIAZEPINES Negative (Negative); COCAINE Negative (Negative); METHADONE Negative (Negative); OPIATES Negative (Negative); PCP POSITIVE (Negative)
[2019-03-21 07:59] VITALS: BP 121/86
[2019-03-21 13:49] VITALS: BP 124/75
[2019-03-21 14:50] LABS: ALBUMIN 2.6 g/dL (3.4-5.0); TOTAL PROTEIN 8.4 g/dL (6.4-8.2)
[2019-03-21 15:20] LABS: TSH 0.332 uIU/mL (0.358-3.740)
--- NOTE | 2019-03-21 18:31 | NUR ---
PT ARRIVED ON UNIT FROM ER AT APPROX. 14:00. ADMISSION ASSESSMENT, HISTORY AND EDUCATION COMPLETE. MED REC COMPLETE AND CONFIRMED WITH PHARMACY ( NO HOME MEDS). CONSULTS CALLED, PHOTO OF WOUND IN CHART. ORDERS IMPLEMENTED, WOUND DRESSING CHANGED. PT TO HAVE PROCEDULRE TOMORROW, CONSENT IS SIGNED AND ON CHART.
[2019-03-21 19:48] VITALS: BP 118/85
--- NOTE | 2019-03-22 03:44 | NUR ---
PATIENT ALERT AND ORIENTED X4. C/O MUSCLE SPASM PAIN AND RESTLESS. ORDER RECEIVED FROM DR. KAHN FOR BACLOFEN WHICH WAS GIVEN WITH SOME RELIEF. MEDICATED FOR PAIN WITH IVP MORPHINE WITH LITTLE RELIEF PER PATIENT. IVF INFUSING W/O COMPLICATION. DRESSING TO BUTTOCK CHANGED DUE TO PATIENTS ACTIVITY MAKING IT LOOSE AND OPEN. PATIENT HAS BEEN NPO SINCE 235803/21/19 PER ORDER FOR HIS PROCEDURE TODAY. PATIENT HAS BEEN REMINDED SEVERAL TIMES TO BE MORE QUIET IN HIS ROOM HE CAN BE HEARD AT THE NURSES STATION WITH THE DOOR CLOSED. WILL MONITOR.
[2019-03-22 03:46] LABS: HEMATOCRIT 32.9 % (42.0-52.0); HEMOGLOBIN 10.7 gm/dL (14.0-18.0); MCH 28.3 pg (26.0-34.0); MCHC 32.6 g/dL (28.0-37.0); MCV 86.7 fL (80.0-100.0); RBC 3.79 mil/uL (4.50-6.00); RDW 13.7 % (10.5-14.5); WBC 6.5 thou/uL (4.0-11.0)
[2019-03-22 03:56] LABS: CALCIUM 8.8 mg/dL (8.5-10.1); CREATININE 0.7 mg/dL (0.7-1.3); MAGNESIUM 1.9 mg/dL (1.8-2.4); POTASSIUM 3.9 mmol/L (3.5-5.1)
[2019-03-22 08:54] VITALS: BP 134/55
[2019-03-22 11:43] LABS: AMP/METHAMP Negative (Negative); BARBITURATES Negative (Negative); BENZODIAZEPINES Negative (Negative); COCAINE Negative (Negative); METHADONE Negative (Negative); OPIATES POSITIVE (Negative); PCP POSITIVE (Negative)
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
[2019-03-22 15:34] VITALS: BP 132/62
[2019-03-22 19:39] VITALS: BP 98/48
--- NOTE | 2019-03-22 19:59 | NUR ---
TO SURGERY VIA CART AT APPROX 10 AM RETURNED APPROX. 1230 TO FLOOR VIA CART-PER REPORT CALLED FROM RECOVERY ROOM SURGERY POSTPONED UNTIL 03/23 AM D/T UDS POSITIVE RESULTS-UPON ARRIVAL TO FLOOR REQUESTING PAIN MEDS FOR LEG PAIN RATED A 10 ON 1-10 SCALE MORPHINE SULFATE 4MG ADMINISTER IV PUSH AT 1300 AND REPEATED AT 1700 WITH VERBALIZED GOOD RESULTS. MOVES SELF FREELY IN BED AND REFUSES Q 2 HR TURNS- DRESSING TO MIDLINE COCYX DRY AND INTACT. [place] CATHETOR PATENT DRAINING CLEAR YELLOW URINE. CHOLOSTOMY BAD WITH SCANT AMOUNT LIQUID STOOL
[2019-03-23 05:57] LABS: HEMATOCRIT 30.8 % (42.0-52.0); HEMOGLOBIN 10.2 gm/dL (14.0-18.0); MCH 29.2 pg (26.0-34.0); MCV 88.3 fL (80.0-100.0); RBC 3.49 mil/uL (4.50-6.00); RDW 13.6 % (10.5-14.5); WBC 5.6 thou/uL (4.0-11.0)
[2019-03-23 06:00] LABS: CALCIUM 8.7 mg/dL (8.5-10.1); CREATININE 0.7 mg/dL (0.7-1.3); MAGNESIUM 1.8 mg/dL (1.8-2.4); POTASSIUM 4.2 mmol/L (3.5-5.1)
--- NOTE | 2019-03-23 06:47 | NUR ---
PATIENT ALERT AND ORIENTED X4. IVF INFUSING W/O COMPLICATION. DRESSING CHANGED DUE TO LEAKAGE. PATIENT HAS BEEN NPO SINCE 2358 ON 03/22/19 FOR SURGERY TODAY. MEDICATED X3 WITH MORPHINE IV AND BACLOFEN X1. FAMILY/FRIENDS AT BEDSIDE IN EARLY EVENING. RESTING QUIETLY.
[2019-03-23 07:49] VITALS: BP 97/61
[2019-03-23 12:30] LABS: AMP/METHAMP Negative (Negative); BARBITURATES Negative (Negative); BENZODIAZEPINES Negative (Negative); COCAINE Negative (Negative); METHADONE Negative (Negative); OPIATES POSITIVE (Negative); PCP POSITIVE (Negative)
--- NOTE | 2019-03-23 16:05 | NUR ---
ASSUMED CARE 0700, ALERT X4, PAIN MANAGED WITH MEDICATION, SURGERY COMPLETED THIS AFTERNOON BY DR RAINES, FOR AN I&D, OSTECTOMY TREATED FOR PAIN POST OP PRIOR TO RETURNING TO ROOM AT 1555. PATIENT ALERT AND CALM AND INTERACTING WITH NURSE AND PARENT. ALLI/TAPE DRESSING INPLACE. RESTARTED IV FLUIDS PER ORDERS. DIET ORDER IN PLACE FOR DINNER. REQUIRED A NEW IV TO RIGHT FORARM PRIOR TO SURGERY INSERTED BY IV TEAM. VS WNL. CALL LIGHT IN REACH. CONTINUE TO MONITOR.
[2019-03-23 17:00] VITALS: BP 122/81
[2019-03-23 17:30] VITALS: BP 121/84
[2019-03-23 18:00] VITALS: BP 113/77
[2019-03-23 18:30] VITALS: BP 133/75
--- NOTE | 2019-03-23 19:38 | O ---
[facility] [place] [address] [address] [place] [address] OPERATIVE REPORT Name: ADOLFO OSPINA Room #: 454-P [facility] IN M.R.#: [id number] Admission: 03/21/19 ������������������ Attend Phys: Solis White MD Discharge: ������������������ Date of : 78 Report #: [id number] THIS REPORT FOR: //name// CC: FAM unknown Solis White DATE OF SERVICE: 03/23/2019 SERVICE: Orthopedics. FACILITY: [facility]. SURGEON: Sukhwinder Rico MD ?? LOGISTICS LEAD: None. PREOPERATIVE DIAGNOSES: 1. 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 2. Septic arthritis, right hip. 3. Osteomyelitis, right femoral head. 4. Paraplegia. POSTOPERATIVE DIAGNOSES: 1. 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 2. Septic arthritis, right hip. 3. Osteomyelitis, right femoral head. 4. Paraplegia. PROCEDURE: 1. Irrigation and debridement down to bone and joint of right septic hip. 2. Resection arthroplasty right hip. COMPLICATIONS: None. ����� ?���� DRAINS: None. SPECIMENS: Femoral head, which was sent for pathology. HISTORY OF PRESENT ILLNESS: The patient is a 38-year-old male with a history of paraplegia and a grade 4 sacral decubitus ulcer that had eroded into the hip joint. He had an attempt at conservative treatment in terms of bony preservation, but this failed, and so plans were made for a more aggressive approach including resection of the femoral head. The CT scan showed air in the joint as well as clear evidence of femoral head erosion. Risks, benefits, [facility] [address] [place] [address] OPERATIVE REPORT Name: ADOLFO OSPINA Room #: 454-P [facility] IN M.R.#: [id number] Admission: 03/21/19 ������������������ Attend Phys: Solis White MD Discharge: ������������������ Date of : 78 Report #: [id number] alternatives and indications of surgery were discussed with him in detail. Risks include but not limited to pain, bleeding, infection, injuring nerves or blood vessels, persistent pain despite surgical intervention, nonhealing, progression of the infection, need for further surgery including revision as well as complications related to anesthesia such as stroke, heart attack, pulmonary complications, thromboembolic disease and . Despite these risks, he wished to proceed. PROCEDURE IN DETAIL: After right lower extremity was correctly identified as the operative site, the patient was taken to the operating room where general anesthesia was induced without complication. He was turned into a prone position with the sacrum facing up. He was padded appropriately. Prophylactic antibiotics were not administered in the OR as he is already on an antibiotic regimen, and these are continued in appropriate fashion. This patient was seen in consultation with Dr. Doni Cee from General Surgery for his approach to treatment of the sacral wound. After the right thigh was prepped and draped in a standard sterile fashion, timeout procedure performed. The wound was explored, and there was a hole going down into the hip joint. A blade was used to incise the fibrinous tissue in line with the femoral neck, and then, the retractors were placed around the femoral neck. A 1 inch osteotome was then used to perform osteotomy on the femoral neck and then the ligamentum teres was incised with the cautery. The femoral head was then delivered out of the wound and inspected. There was arthritis present. There was also erosion of the femoral head from previous debridement as well as osteomyelitis, presumably. The femoral head was passed for pathology. 2 liters of saline was then thoroughly lavaged through the hip joint. The residual pulvinar was removed from the hip and then debridement was completed. A thin layer of bone wax was applied to the exposed portion of the proximal femur at the side of the osteotomy. At this point, the soft tissue envelope was quite mobile and covered the defect well, and then, the procedure was passed to Dr. Doni Cee to perform the sacral debridement. There were no complications on my portion of the case, all counts were recorded as correct. ��������������������������������������������� <ELECTRONICALLY SIGNED> ���������������������������������������� By: Sukhwinder Rico MD ��������������������������������������������� 03/23/19 1938 1516 1543 Sukhwinder Rico MD /nt
[2019-03-23 20:27] VITALS: BP 114/78
--- NOTE | 2019-03-24 02:17 | NUR ---
ASSUMED CARE OF PT AT 1900HRS. PT IS AOX4 AND LETS NEEDS BE KNOWN. SURGICAL WOUND DRESSING PARTIALLY CHANGED AND REINFORCED DUE TO BLEEDING. PT REPORTED MOAPA PAIN AND WAS TREATED WITH PRN PAIN MEDS. NO OTHER S/S OF ACUTE DISTRESS. WILL CONTINUE TO MONITOR.
[2019-03-24 04:51] LABS: HEMATOCRIT 29.6 % (42.0-52.0); HEMOGLOBIN 9.9 gm/dL (14.0-18.0); MCH 28.9 pg (26.0-34.0); MCHC 33.4 g/dL (28.0-37.0); MCV 86.7 fL (80.0-100.0); RBC 3.41 mil/uL (4.50-6.00); RDW 13.1 % (10.5-14.5); WBC 8.1 thou/uL (4.0-11.0)
[2019-03-24 05:00] LABS: CALCIUM 8.8 mg/dL (8.5-10.1); CREATININE 0.6 mg/dL (0.7-1.3); MAGNESIUM 1.9 mg/dL (1.8-2.4); POTASSIUM 4.3 mmol/L (3.5-5.1)
[2019-03-24 07:50] VITALS: BP 126/85
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
--- NOTE | 2019-03-24 10:12 | NUR ---
Nutrition: REC add MVI, ascorbic acid for wound healing. Zinc level pending.
[2019-03-24 14:14] VITALS: BP 115/71
--- NOTE | 2019-03-24 15:07 | NUR ---
WOUND CARE FOLLOW UP; THE RIGHT ISCHIAL TUBEROSITY WOUND IS A HEALTHY, BEEFY RED COLOR TODAY. NO SIGNS OR SYMPTOMS OF INFECTION NOTED TODAY. RECOMMENDATIONS; VAC THERAPY TO START TODAY. DISCUSSED WITH STAFF
--- NOTE | 2019-03-24 15:48 | NUR ---
DISCHARGE PLANNING. ANTICIPATED DISCHARGE TOMORROW OR SATURDAY. LTAC ROCOMMENDED AT DISCHARGE. REFERRAL FAXED TO [facility], FOR LTAC NEEDS. CALL PLACED TO TERESA TO NOTIFY. TERESA TO REVIEW AND NOTIFY CM. UNIT SW AWARE. FOLLOWING TO ASSIST WITH DISCHARGE NEEDS.
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
[2019-03-24 20:03] VITALS: BP 122/85
--- NOTE | 2019-03-24 20:40 | NUR ---
VASCULAR ACCESS NOTE ORDER VERIFIED AND PATIENT CONSENTED FOR PICC LINE PLACEMENT SL PICC PLACED TO R BRACHIAL VEIN PER HOSPITAL P&P WITH US ASSESSMENT VESSEL IS WIDELY PATENT. LIDOCAINE 1% 3ML GIVEN SQ INJECTION. VESSEL CANNULATED WITH ONE ATTEMPT. GUIDEWIRE ADVANCED EASILY. VESSEL DILATED. GUIDEWIRE REMOVED INTACT. 4FR 37CM SL PICC INSERTED WITHOUT RESISTANCE. LINE PLACED TO 36CM INTERNAL AND 1CM EXTERNAL. LINE FLUSHES AND DRAWS EASILY. CXR CONFIRMATION OF PLACEMENT. PICC RELEASED FOR IMMEDIATE USE TO RN. PATIENT TOLERATED PROCEDURE WELL.
--- NOTE | 2019-03-24 21:07 | NUR ---
PATIENT ALERT AND ORIENTED AND PLEASANT AND COOPERATIVE WITH POC. ILLEOSTOMY BAG WAS CHANGED BY PATIENT. PICC LINE PLACED THIS EVENING. PATIENT REQUESTED PAIN MEDICATION 1 TIME TODAY. PATIENT TURNS SELF IN BED.
--- NOTE | 2019-03-25 03:39 | NUR ---
pain controlled this shift. patient requesting for this nurse to push iv pain meds fast on the veins, and was getting upset for this nurse pushing meds slowly.patient educated the need to push iv meds slowly. patient has wound vac, wound vac running, dressing c/d/i/. patient has gandara and ilestomy patient takes care of gandara and ilestomy. patient in bed asleep at this time breathing regular and unlaboured.
[2019-03-25 04:32] VITALS: BP 100/65
[2019-03-25 05:41] LABS: HEMATOCRIT 31.9 % (42.0-52.0); HEMOGLOBIN 10.5 gm/dL (14.0-18.0); MCH 28.6 pg (26.0-34.0); MCV 86.9 fL (80.0-100.0); RBC 3.68 mil/uL (4.50-6.00); RDW 13.8 % (10.5-14.5); WBC 7.3 thou/uL (4.0-11.0)
[2019-03-25 06:07] LABS: CREATININE 0.7 mg/dL (0.7-1.3); MAGNESIUM 1.9 mg/dL (1.8-2.4); POTASSIUM 4.3 mmol/L (3.5-5.1)
[2019-03-25 08:30] VITALS: BP 93/53
[2019-03-25 15:10] VITALS: BP 104/60
--- NOTE | 2019-03-25 15:15 | NUR ---
[facility] IS ABLE TO ACCEPT PT UPON DC. IT IS ANTICPATED THAT PT WILL BE MEDICALLY STABLE TO DC TOMORROW. FACILITY WAS PROVIDED CLINDAMYCIN ORDER SO THAT THEY COULD ORDER IT. CM TO FOLLOW INDICATED WITH DC PLANNING.
[2019-03-25 20:28] VITALS: BP 96/59
--- NOTE | 2019-03-25 20:55 | NUR ---
Assumed pt care this am, FC is draining yellow urine, ileostomy bag changed by the pt. PICC lice care done, able to push medication and draw blood. Wound vac running, dressing pratik and intact. Pain managed with meedication, turned every 2 hours. POC followed, no sgns or verbalizations of distress have been noted.
[2019-03-26 05:57] LABS: HEMATOCRIT 32.7 % (42.0-52.0); HEMOGLOBIN 10.8 gm/dL (14.0-18.0); MCH 28.6 pg (26.0-34.0); MCV 86.7 fL (80.0-100.0); RBC 3.77 mil/uL (4.50-6.00); RDW 13.7 % (10.5-14.5); WBC 8.9 thou/uL (4.0-11.0)
[2019-03-26 06:12] LABS: CALCIUM 9.3 mg/dL (8.5-10.1); CREATININE 0.9 mg/dL (0.7-1.3)
--- NOTE | 2019-03-26 07:24 | NUR ---
A/O, pleasant. patient asked to change the stomy bag, the staff called the well point pumping supervisor, well point pumping supervisor voiced that the central service would be open at 5:30am, asking the staff to contact the CS then. The staff did not get hold of the CS. The day nurse claimed she would change the stomy bag for the patient.
[2019-03-26 08:03] VITALS: BP 125/39
--- NOTE | 2019-03-26 12:28 | NUR ---
[facility] INDICATED THAT THEY HAVE AUTH FOR PT TO ADMIT THIS DAY. CARE TEAM INDICTED PT IS MEDICALLY STABLE TO DISCHARGE. [facility] TRANSPORT IS ARRANGED FOR 1400. CHART COPY MADE. ORDERS TO BE FAXED. REPORT TO BE CALLED TO . PT AND MOTHER ARE AWARE AND AGREEABLE. NO OTHER CM INTERVENTION INDICATED. CASE CLOSED.
[2019-03-26] MEDS ORDERED: PROBIOTIC1 EAC1 PO (12:36)
[2019-03-26] MEDS ORDERED: MIRALAX17 GM PO (12:36)
[2019-03-26] MEDS ORDERED: NEURONTIN 300300 M1 PO (12:36)
[2019-03-26] MEDS ORDERED: PROTONIX 20 MG20 M1 PO (12:36)
[2019-03-26] MEDS ORDERED: LIORESAL 10 MG10 MG PO (12:36)
[2019-03-26] MEDS ORDERED: TYLENOL325 MG PO (12:36)
[2019-03-26] MEDS ORDERED: ENOXAPARIN40 MG/0.1 SUBQ (12:36)
[2019-03-26] MEDS ORDERED: PAXIL10 MG PO (12:36)
[2019-03-26] MEDS ORDERED: CLINDAMYCI600 MG/51 IV (12:36)
[2019-03-26] MEDS ORDERED: CEFEPIME HCL2 GM IV (12:45)
--- NOTE | 2019-03-26 14:42 | NUR ---
DISCHARGE NOTE; THE RIGHT ISCHIAL TUBEROSITY WOUND IS BRIGHT RED, MUCH IMPROBED SINCE ADMISSION. NO S/S OF INFECTION. RECOMMEDNATION; CONTINUE VAC THERAPY. RN PRESENT
--- NOTE | 2019-03-26 20:12 | NUR ---
Assumed pt care this am, ileostomy care done and bag changed. Bend bath and oral care done. FC draining light yellow urine, PICC line patent. POC followed, supplements taken and well tolerated. Pt dc to [facility], report called. Pain managed with medication, VS stable.
== END 2019-03-26 17:00 | DRG 498 ==
LOC: ER 03:31 → EROBS 06:21 → 4W 06:21
PROVIDERS: Emergency Medicine; Hospitalist; Orthopaedic Surgery Sports Medicine; Surgery; ADMIT Internal Medicine
PROC: 0QB60ZZ Excision of Right Upper Femur, Open Approach (ICD-10-PCS; principal; 2019-03-23)
DX: M00.851 Arthritis due to other bacteria, right hip (principal); L89.214 Pressure ulcer of right hip, stage 4; L89.154 Pressure ulcer of sacral region, stage 4; N39.0 Urinary tract infection, site not specified; G82.20 Paraplegia, unspecified; Z68.1 Body mass index [BMI] 19.9 or less, adult; M86.8X8 Other osteomyelitis, other site; E44.0 Moderate protein-calorie malnutrition; I10 Essential (primary) hypertension; F16.10 Hallucinogen abuse, uncomplicated; N31.9 Neuromuscular dysfunction of bladder, unspecified; Z87.891 Personal history of nicotine dependence; Z93.3 Colostomy status; Z79.899 Other long term (current) drug therapy; Z99.3 Dependence on wheelchair; Z88.1 Allergy status to other antibiotic agents; Z83.3 Family history of diabetes mellitus; Z80.8 Family history of malignant neoplasm of other organs or systems; Z82.49 Family history of ischemic heart disease and other diseases of the circulatory system
CPT/HCPCS: 10040; 27000; 50010; 50101; 50386; 50403; 51412; 53078; 56524; 57103; 57119; 57120; 57192; 62110; 62900; 70005

== ENCOUNTER → 2019-05-12 | Outpatient (CLI) | payer OTHER ==
[~2019-05-12] MED LIST changes: +CEFEPIME HCL2 GM IV; +CLINDAMYCI600 MG/51 IV; +ENOXAPARIN40 MG/0.1 SUBQ; +PAXIL10 MG PO; +TYLENOL325 MG PO
== END ==
LOC: HYPER 07:18
DX: L89.313 Pressure ulcer of right buttock, stage 3 (principal); G82.21 Paraplegia, complete; E46 Unspecified protein-calorie malnutrition; I10 Essential (primary) hypertension; M19.90 Unspecified osteoarthritis, unspecified site; F14.10 Cocaine abuse, uncomplicated; F12.90 Cannabis use, unspecified, uncomplicated; Z87.891 Personal history of nicotine dependence

== ENCOUNTER 2019-05-15 00:29 | Emergency (ER) | payer OTHER ==
[~2019-05-15] VITALS: Ht 177.8 cm; Wt 72.6 kg
[2019-05-15 01:17] LABS: HEMATOCRIT 29.4 % (42.0-52.0); HEMOGLOBIN 9.4 gm/dL (14.0-18.0); MCH 26.2 pg (26.0-34.0); MCHC 32.1 g/dL (28.0-37.0); MCV 81.4 fL (80.0-100.0); PLATELET COUNT 604 thou/uL (150-400); RBC 3.61 mil/uL (4.50-6.00); RDW 17.2 % (10.5-14.5); WBC 8.2 thou/uL (4.0-11.0)
[2019-05-15 01:20] LABS: ANION GAP 9 mmol/L (7-16); BUN 7 mg/dL (7-18); CALCIUM 9.3 mg/dL (8.5-10.1); CHLORIDE 97 mmol/L (98-107); CO2 28 mmol/L (21-32); CREATININE 0.8 mg/dL (0.7-1.3); GLUCOSE 93 mg/dL (74-106); POTASSIUM 3.7 mmol/L (3.5-5.1); SODIUM 134 mmol/L (136-145)
[2019-05-15 01:30] LABS: TROPONIN-I <0.06 ng/mL (<0.06)
[2019-05-15 01:44] LABS: AMP/METHAMP Negative (Negative); BARBITURATES Negative (Negative); BENZODIAZEPINES Negative (Negative); COCAINE Negative (Negative); METHADONE Negative (Negative); OPIATES Negative (Negative); PCP POSITIVE (Negative)
[2019-05-15 02:28] LABS: ABSOLUTE NEUTROPHILS 5.6 thou/uL (1.4-8.2)
[2019-05-15 02:39] LABS: ANISOCYTOSIS 1+; PLATELET ESTIMATE INCREASED; POIKILOCYTOSIS 1+
[2019-05-15 03:57] VITALS: BP 129/74
--- NOTE | 2019-05-15 17:26 | EKG ---
[place] [address] [address] [facility] [place] [address] ELECTROCARDIOGRAM REPORT Name: ADOLFO OSPINA Room #: DEP Jyotsna#: [id number] ������������������ Admission: 05/15/19 ������������������ Attend Phys: Discharge: 05/15/19 ������������������ Date of : 76 Report #: [id number] ����������������������������������������������������������������� [id number] THIS REPORT FOR: //name// [facility] ED Test Date: 2019-05-15 Test Time: 01:26:58 Pat Name: ADOLFO OSPINA Department: Room: Gender: Safety Tech: deneen : 1980 Requested By: Adolfo Gray Order Number: [id number] MD: Quique Singh Measurements Intervals [place] Rate: 91 P: 86 WI: 124 QRS: -7 QRSD: 96 T: 49 QT: 444 QTc: 547 Interpretive Statements Sinus rhythm Probable left ventricular hypertrophy Prolonged QT interval No previous ECG available for comparison Electronically Signed On 05-15-2019 17:25:45 CDT by Quique Singh [email or web address] ��������������������������������������������� <ELECTRONICALLY SIGNED> ���������������������������������������� By: Quique Singh MD, [facility] ��������������������������������������������� 05/15/19 1725 0126 0126 Quique Singh MD, FACC /EPI
== END 2019-05-15 03:58 | disposition home or self-care (01) ==
LOC: ER 00:29
PROVIDERS: Emergency Medicine
DX: F16.10 Hallucinogen abuse, uncomplicated (principal); I10 Essential (primary) hypertension; Z88.1 Allergy status to other antibiotic agents

== ENCOUNTER 2019-05-26 06:22 | Emergency (ER) | payer OTHER ==
[~2019-05-26] VITALS: Ht 182.9 cm; Wt 61.2 kg
[2019-05-26] MEDS ORDERED: OXYCODONE HCL10 MG PO (06:29)
[2019-05-26 06:51] LABS: HEMATOCRIT 30.5 % (42.0-52.0); HEMOGLOBIN 9.8 gm/dL (14.0-18.0); MCH 25.5 pg (26.0-34.0); MCV 79.6 fL (80.0-100.0); PLATELET COUNT 460 thou/uL (150-400); RBC 3.84 mil/uL (4.50-6.00)
[2019-05-26 07:01] LABS: ANION GAP 6 mmol/L (7-16); BUN 5 mg/dL (7-18); CALCIUM 9.5 mg/dL (8.5-10.1); CHLORIDE 100 mmol/L (98-107); CO2 31 mmol/L (21-32); CREATININE 0.7 mg/dL (0.7-1.3); GLUCOSE 91 mg/dL (74-106); POTASSIUM 4.1 mmol/L (3.5-5.1); SODIUM 137 mmol/L (136-145)
[2019-05-26 07:10] LABS: TROPONIN-I <0.06 ng/mL (<0.06)
[2019-05-26 07:29] LABS: ABSOLUTE NEUTROPHILS 4.1 thou/uL (1.4-8.2); ATYPICAL LYMPHS 2 %
[2019-05-26 07:31] LABS: ANISOCYTOSIS 1+
[2019-05-26 09:29] VITALS: BP 135/105
--- NOTE | 2019-05-26 14:12 | EKG ---
[place] [address] [address] [facility] [place] [address] ELECTROCARDIOGRAM REPORT Name: ADOLFO OSPINA Room #: DEP Jyotsna#: [id number] Admission: 05/26/19 Attend Phys: Discharge: 05/26/19 Date of : 76 Report #: [id number] THIS REPORT FOR: //name// [facility] ED Test Date: 2019-05-26 Test Time: 06:43:48 Pat Name: ADOLFO OSPINA Department: Room: Gender: Supervisor [employer]: deneen : 1980 Requested By: Sukhwinder Weiner Order Number: [id number] MD: Clay Christine Measurements Intervals [place] Rate: 95 P: 82 MO: 131 QRS: -11 QRSD: 91 T: 30 QT: 351 QTc: 442 Interpretive Statements Sinus rhythm Consider left ventricular hypertrophy Compared to ECG 05/15/2019 01:26:58 Electronically Signed On 05-26-2019 14:12:00 CDT by Clay Christine [email or web address] <ELECTRONICALLY SIGNED> By: Clay Christine MD 05/26/19 1412 0643 0643 Clay Christine MD /ROYER
== END 2019-05-26 09:52 | disposition home or self-care (01) ==
LOC: ER 06:22
PROVIDERS: Emergency Medicine
DX: R06.00 Dyspnea, unspecified (principal); I10 Essential (primary) hypertension; G82.20 Paraplegia, unspecified; Z87.440 Personal history of urinary (tract) infections; Z88.1 Allergy status to other antibiotic agents

== ENCOUNTER 2019-06-03 04:12 | Emergency (ER) | payer OTHER ==
[~2019-06-03] VITALS: Ht 182.9 cm; Wt 59.0 kg
[~2019-06-03 04:12] MED LIST changes: +OXYCODONE HCL10 MG PO
[2019-06-03 04:36] LABS: BASOPHILS 1.2 % (0.0-2.0); HEMATOCRIT 30.9 % (42.0-52.0); HEMOGLOBIN 9.7 gm/dL (14.0-18.0); LYMPHOCYTES 25.1 % (24.0-44.0); MCH 25.3 pg (26.0-34.0); MCHC 31.5 g/dL (28.0-37.0); MCV 80.4 fL (80.0-100.0); MONOCYTES 10.8 % (1.0-8.0); PLATELET COUNT 384 thou/uL (150-400); POLYS 60.9 % (36.0-66.0); RBC 3.84 mil/uL (4.50-6.00); RDW 18.2 % (10.5-14.5); WBC 8.3 thou/uL (4.0-11.0)
[2019-06-03 04:45] LABS: ANION GAP 7 mmol/L (7-16); BUN 9 mg/dL (7-18); CALCIUM 8.7 mg/dL (8.5-10.1); CHLORIDE 99 mmol/L (98-107); CO2 28 mmol/L (21-32); CREATININE 0.9 mg/dL (0.7-1.3); GLUCOSE 92 mg/dL (74-106); POTASSIUM 3.8 mmol/L (3.5-5.1); SODIUM 134 mmol/L (136-145)
[2019-06-03 04:53] LABS: APTT 31.4 Seconds (24.5-32.8); INR 1.1; PROTIME 11.4 Seconds (9.3-11.4)
[2019-06-03 04:54] LABS: ALBUMIN 2.2 g/dL (3.4-5.0); SGOT 13 U/L (15-37); SGPT 10 U/L (30-65); TOTAL BILIRUBIN 0.1 mg/dL (<0.1-1.0); TROPONIN-I <0.06 ng/mL (<0.06)
[2019-06-03] MEDS ORDERED: PREDNISONE 20 M20 M1 PO (05:46)
[2019-06-03] MEDS ORDERED: REFRESH TEARS15 ML OPHTHALMIC (05:54)
[2019-06-03] MEDS ORDERED: REFRESH LACRI-3.5 GM OPHTHALMIC (05:54)
[2019-06-03 06:12] VITALS: BP 141/101
--- NOTE | 2019-06-03 07:42 | EKG ---
[place] [address] [place] [address] ELECTROCARDIOGRAM REPORT Name: ADOLFO OSPINA [id number] Admission: 06/03/19 Attend Phys: Discharge: 06/03/19 Date of : 76 Report #: [id number] THIS REPORT FOR: //name// [facility] ED Test Date: 2019-06-03 Test Time: 04:33:58 Pat Name: ADOLFO OSPINA Department: Room: Gender: Workforce Development Specialist: ANTHONY : 1980 Requested By: Adolfo Gray Order Number: [id number] MD: Quique Singh Measurements Intervals [place] Rate: 81 P: 77 [place]: 131 QRS: -5 QRSD: 94 T: 21 QT: 397 QTc: 461 Interpretive Statements Sinus rhythm Normal tracing Compared to ECG 05/26/2019 06:43:48 No significant changes Electronically Signed On 06-03-2019 7:41:46 CDT by Quique Singh [email or web address] <ELECTRONICALLY SIGNED> By: Quique Singh MD, [facility] 06/03/19 0741 [id number] 0433 Quique Singh MD, FACC /EPI
== END 2019-06-03 07:15 | disposition home or self-care (01) ==
LOC: ER 04:12
PROVIDERS: Emergency Medicine
DX: G51.0 Bell's palsy (principal); I10 Essential (primary) hypertension; Z88.1 Allergy status to other antibiotic agents; Z93.3 Colostomy status; Z87.440 Personal history of urinary (tract) infections; Z87.891 Personal history of nicotine dependence

== ENCOUNTER 2019-06-07 04:41 | Inpatient (IN) | payer OTHER ==
[~2019-06-07] VITALS: Ht 182.9 cm; Wt 59.4 kg
[~2019-06-07 04:41] MED LIST changes: +PREDNISONE 20 M20 M1 PO; +REFRESH LACRI-3.5 GM OPHTHALMIC; +REFRESH TEARS15 ML OPHTHALMIC
[2019-06-07 04:42] VITALS: BP 136/89
[2019-06-07 06:00] LABS: ABSOLUTE NEUTROPHILS 7.5 thou/uL (1.4-8.2); BASOPHILS 0.4 % (0.0-2.0); HEMATOCRIT 30.7 % (42.0-52.0); HEMOGLOBIN 9.5 gm/dL (14.0-18.0); LYMPHOCYTES 21.1 % (24.0-44.0); MCH 24.8 pg (26.0-34.0); MCHC 30.8 g/dL (28.0-37.0); MCV 80.3 fL (80.0-100.0); MONOCYTES 11.6 % (1.0-8.0); PLATELET COUNT 402 thou/uL (150-400); POLYS 65.9 % (36.0-66.0); RBC 3.83 mil/uL (4.50-6.00); RDW 18.3 % (10.5-14.5); WBC 11.3 thou/uL (4.0-11.0)
[2019-06-07 06:09] LABS: CALCIUM 8.2 mg/dL (8.5-10.1); CREATININE 0.6 mg/dL (0.7-1.3); POTASSIUM 3.9 mmol/L (3.5-5.1)
[2019-06-07 06:15] LABS: TOTAL BILIRUBIN 0.4 mg/dL (<0.1-1.0); TOTAL PROTEIN 6.9 g/dL (6.4-8.2)
[2019-06-07 07:03] LABS: URINE BILIRUBIN NEGATIVE (Negative); URINE BLOOD TRACE (Negative); URINE COLOR YELLOW; URINE GLUCOSE-RANDOM* NEGATIVE (Negative); URINE KETONES NEGATIVE (Negative); URINE PROTEIN (DIPSTICK) NEGATIVE (Negative); URINE SPECIFIC GRAVITY 1.015 (1.005-1.035)
[2019-06-07 07:08] LABS: URINE CLARITY HAZY; URINE LEUKOCYTES-REFLEX 2+ (Negative); URINE NITRITE-REFLEX POSITIVE (Negative)
[2019-06-07 07:17] LABS: CASTS None Seen /LPF (None Seen); SQUAMOUS None Seen /LPF (0-3)
[2019-06-07 07:18] LABS: BACTERIA-REFLEX >30 Many /HPF (None Seen); CALCIUM OXALATE 0-3 Few /LPF (None Seen); URINE RBC 0-2 Rare /HPF (0-2)
[2019-06-07 07:56] VITALS: BP 114/74
[2019-06-07 08:32] VITALS: BP 112/78
[2019-06-07 08:55] VITALS: BP 120/76
[2019-06-07 14:45] VITALS: BP 120/77
[2019-06-07 19:11] LABS: AMP/METHAMP Negative (Negative); BARBITURATES Negative (Negative); BENZODIAZEPINES Negative (Negative); COCAINE Negative (Negative); METHADONE Negative (Negative); OPIATES POSITIVE (Negative); PCP POSITIVE (Negative)
[2019-06-07 20:45] VITALS: BP 115/80
[2019-06-08] VITALS: BP 107/75
--- NOTE | 2019-06-08 03:42 | NUR ---
PATIENT AOX4 MAKES NEEDS KNOWN. PAIN CONTROLLED THIS SHIFT. WOUND ON RIGHT HIP WAS DRAINAGE TOO MUCH THIS SHIFT,WOUND BED IS PINK IN COLOR DRESSING DONE THIS SHIFT PER ORDER. PATIENT FEED SNACKS THROUGHOUT THE SHIFT. FALL PRECAUTION IN PLACE. CALL LIGHT WITHIN REACH. PATIENT IN BED ASLEEP AT THIS TIME BREATHING REGULAR AND UNLABOURED.
[2019-06-08 04:19] VITALS: BP 111/77
[2019-06-08 07:55] VITALS: BP 104/82
[2019-06-08 08:11] LABS: HEMATOCRIT 26.7 % (42.0-52.0); HEMOGLOBIN 8.4 gm/dL (14.0-18.0); MCH 24.8 pg (26.0-34.0); MCHC 31.3 g/dL (28.0-37.0); RBC 3.38 mil/uL (4.50-6.00); RDW 18.3 % (10.5-14.5); WBC 8.1 thou/uL (4.0-11.0)
[2019-06-08 08:32] LABS: CALCIUM 8.4 mg/dL (8.5-10.1); CREATININE 0.6 mg/dL (0.7-1.3); POTASSIUM 3.8 mmol/L (3.5-5.1)
[2019-06-08 08:33] LABS: PREALBUMIN 15.4 mg/dL (18.0-35.7)
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
--- NOTE | 2019-06-08 12:02 | NUR ---
dp called "[facility]" [facility] [phone]. Patient on service with them for . DP was calling to inquire how many days they see patient. Rajeev got "Terrell" patient's piano case and bench assembler's voicemail and the mailbox was full, therefore information was not obtained. Will try to call again.
--- NOTE | 2019-06-08 12:48 | NUR ---
ostomy care; POUCH EDGES LOOSE, PT REQUESTED POUCH CHANGE POUCH ON X1 WEEK, NEW POUCH YANY 2 PIECE SYSTEM APPLIED, STOMA PINK VIABLE BUDDED W/ SOFT MUSHY BROWN STOOL PRESENT. PERISTOMAL SKIN INTACT, COOPERATIVE W/ CARE, SUPPLIES PLACED AT BS, WILL CONT TO FOLLOW PRN
--- NOTE | 2019-06-08 14:50 | NUR ---
ALERT X4, IMPATIENT WITH CARES, FREQUENTLY ASKS FOR FOOD AND SODA POP, PAIN MANAGED WITH MEDICATOINS, WOUND CARE COMPLETED, INTOLERANT OF RIGHT IJ, IV REMOVED. IV TEAM NOTIVIED FOR PLACEMENT OF PICC LINE. SURGER WITH DR MUSA TOMORROW. FAL PRECATIONS IN PLACE.
--- NOTE | 2019-06-08 16:33 | NUR ---
4FRSLPICC PLACED FOR LT ABX IN [facility]. CXR REVEALS TIP IN THE DSVC. PLEASE SEE INSERTION NI FOR DETAILS
[2019-06-08 17:00] VITALS: BP 115/79
[2019-06-08 19:42] VITALS: BP 127/78
[2019-06-09 03:42] LABS: HEMATOCRIT 24.8 % (42.0-52.0); HEMOGLOBIN 7.9 gm/dL (14.0-18.0); MCH 25.3 pg (26.0-34.0); MCHC 31.9 g/dL (28.0-37.0); MCV 79.2 fL (80.0-100.0); RBC 3.13 mil/uL (4.50-6.00); RDW 18.1 % (10.5-14.5); WBC 7.8 thou/uL (4.0-11.0)
[2019-06-09 03:56] LABS: CALCIUM 8.2 mg/dL (8.5-10.1); CREATININE 0.8 mg/dL (0.7-1.3); POTASSIUM 4.2 mmol/L (3.5-5.1)
--- NOTE | 2019-06-09 04:06 | NUR ---
ASSUMED CARE OF PT AT 1900HRS. PT IS AOX4 AND LETS NEEDS BE KNOWN. FALL PRECAUTION IN PLACE. PT COMPLAINED OF PAIN AND WAS TREATED WITH PRN PAIN MEDS. PT PLACED NPO AT VT FOR PROCEDURE IN THE AM. VSS AND NO S/S OF ACUTE DISTRESS. WILL CONTINUE TO MONITOR.
[2019-06-09 08:38] VITALS: BP 112/70
--- NOTE | 2019-06-09 09:59 | NUR ---
dp spoke with [facility] phone [phone] fax [phone]. Patient is on service with them and receives just snf.
--- NOTE | 2019-06-09 14:35 | NUR ---
EMMA reviewed chart and spoke with nursing and attending physician. Pt to have I&D this afternoon around 1500. EMMA met with pt at bedside to discuss post-acute plans. Pt has Medicaid in-home services and HH through [facility]. supply chain planner confirmed that pt is currently on service with . EMMA discussed possibility of need LTAC placement for IV abx/wound care and medical mgmt. Pt is agreeable with referral to [facility], where he was recently. EMMA faxed referral to [facility] and notified [facility] liaison of new referral. Awiating input from [facility] at this time. EMMA is following to assist as needed with discharge planning.
[2019-06-09 19:16] VITALS: BP 121/81
[2019-06-09 20:25] VITALS: BP 117/78
--- NOTE | 2019-06-09 20:25 | NUR ---
Received awake on bed. On nothing per orem- pt informed and aware. Vital signs stable. A+Ox4. On room air. With colostomy in place- emptied and output measured and recorded. With gandara in place, draining well- output measured and recorded accordingly. With PICC line at R upper arm- NS at 75cc/hr infusing well. Maintained on isolation- MRSA at wound. Turned regularly. Assisted in ADLs. Schedule for I&D today at 1500- consent signed, pt informed and aware. Seen by Wound nurse Isael; dressing changed prior to procedure. PT paraplegic, checked regularly, turned to sides, assisted in ADLs. Complained of pain, due PRN pain meds given as prescribed. Pt fetched by OR staff at 1600.
[2019-06-09 23:10] VITALS: BP 112/71
[2019-06-10 03:37] VITALS: BP 103/67
--- NOTE | 2019-06-10 06:01 | NUR ---
assumed care of pt @1900. pt was very agitated and irritable with staff. pt was medicated per emar. a&ox4. pt is paraplegic and wheelchair bound. MRSA prec in place. pt had an IND of his sacral ulcer done on 06/09. dressing was saturated with bright red blood and serosanguineous fluid twice overnight, and was changed. pt is able to reposition self. [employer]ANCE WEIGHER was called to get an order for a CBC this am. v/s stable.
[2019-06-10 06:19] LABS: HEMATOCRIT 26.1 % (42.0-52.0); HEMOGLOBIN 8.2 gm/dL (14.0-18.0); MCH 24.5 pg (26.0-34.0); MCHC 31.3 g/dL (28.0-37.0); MCV 78.1 fL (80.0-100.0); RBC 3.34 mil/uL (4.50-6.00); RDW 18.6 % (10.5-14.5); WBC 8.8 thou/uL (4.0-11.0)
[2019-06-10 07:58] VITALS: BP 110/60
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
--- NOTE | 2019-06-10 09:57 | O ---
[facility] [place] [address] OPERATIVE REPORT Name: ADOLFO OSPINA Room #: 458-P [facility] IN M.R.#: [id number] Admission: 06/07/19 Attend Phys: Nicola Lazo MD Discharge: Date of : 76 Report #: [id number] THIS REPORT FOR: //name// CC: FAM unknown Nicola Lazo DATE OF SERVICE: 06/09/2019 SERVICE: Orthopedics service. FACILITY: [facility]. SURGEON: Sukhwinder Rico MD MEMBERSHIP MANAGER: Amita Vaughan. PREOPERATIVE DIAGNOSES: 1. Nonhealing sacral decubitus ulcer. 2. Septic arthritis, right hip. 3. Status post Girdlestone femoral resection arthroplasty, right hip. POSTOPERATIVE DIAGNOSES: 1. Nonhealing sacral decubitus ulcer. 2. Septic arthritis, right hip. 3. Status post Girdlestone femoral resection arthroplasty, right hip. PROCEDURE: Irrigation and debridement down to bone, right septic hip. COMPLICATIONS: None. DRAINS: None. SPECIMENS: Culture swab x 2 with tissue for culture. ANESTHESIA: General. FINDINGS: 1. Purulent drainage within the cavity extending down to the hip joint. 2. Superficial portion of the wound and wound over the sacrum healthy in appearance. INDICATIONS: The patient is a gentleman with a history of chronic sacral decubitus wound that eroded into his hip. He had osteomyelitis of the femoral head. He had I and D with femoral head resection and was being treated for several months with wound care. Unfortunately, he presented with illness and the imaging consistent with septic arthritis. He was indicated for surgical [facility] [address] [place] [address] OPERATIVE REPORT Name: ADOLFO OSPINA Room #: 458-P [facility] IN M.R.#: [id number] Admission: 06/07/19 Attend Phys: Nicola Lazo MD Discharge: Date of : 76 Report #: [id number] treatment due to the purulent drainage and failure of conservative nonsurgical measures. Risks, benefits, alternatives and indications of surgery were discussed with him in detail. The risks up to and including from the infection or surgery and he gave full informed consent. PROCEDURE IN DETAIL: After the right-sided sacral wound was identified as the surgical location, the patient was taken to the operating room where general anesthesia was induced. He was turned prone padded appropriately. Prophylactic antibiotics were not administered as he is already on a regimen. The right gluteus region and sacrum was then prepped and draped in standard sterile fashion. Time-out procedure was performed. The superficial portion of the wound is healthy, beefy, pink in appearance, but there was a sinus tract down into the joint. This was bluntly explored. There is purulence that egressed from the hip joint and this was cultured. There was approximately 20 mL to 30 mL of purulence. This was easily evacuated. The wound was then explored bluntly. It was curettaged and then 3 liters of irrigant was pulse lavaged through the wound. I then performed additional debridement down to the bone level and the joint. There was some small loose fragments of bone that were evacuated. The fibrinous tissue and necrotic fat was resected with the rongeur and then the wound was copiously irrigated with additional 3 liters of pulse irrigant. The wound was then packed with a wet Kerlix and a dry dressing was applied over the top. The patient was awakened from anesthesia and taken to recovery room in stable condition. No complications. All counts were correct. <ELECTRONICALLY SIGNED> By: Sukhwinder Rico MD 06/10/19 0957 16 29 Sukhwinder Rico MD /nt
--- NOTE | 2019-06-10 12:39 | NUR ---
WOUND CONSULT; INITIAL ASSESSMENT SHOWS A PATIENT 24 HOURS S/P RIGHT BUTTOCK STAGE 4 DEBRIDEMENT. THE DRESSING WAS SATURATED WITH RONDA BLOOD. THE WOUND WAS NOT ACTIVLEY BLEEDING. THE WOUND HAS A TUNNEL AT APPROX; 2:00, MEASURES 6.0 CM. NO ODOR, PATIENT DENIES S/S OF INFECTION (HE IS A PARAPLEGIC). THE WOUND BED IS BEEFY RED. RECOMMENDATIONS; START WOUND VAC OK PER NATALIA BSN. WE WILL ASSESS FOR BLEEDING. DISCUSSED WITH ITZEL
--- NOTE | 2019-06-10 15:31 | NUR ---
WOUND CARE F/U; I AM F/U WITH THIS PATIENT BECAUSE THE SURGICAL DRESSING WAS SATURATED BUT NOT ACTIVLEY BLEEDING PRIOR TO WOUND VAC APPLICATION. AT 1530 THERE WAS NO BLOOD IN THE WOUND VAC CANNISTER AKA NO ACUTE BLEEDING AT THIS TIME.
--- NOTE | 2019-06-10 19:47 | NUR ---
Assumed pt care this am, FC patent and draining light yellow urine. Colostomy in place with no infection noted. PICC line at right US patent both for in and out flow. Pain managed with medications, wound care team to visit and placed a wound vac, picture taken by the wound care team. Isolation maintained for MRSA. POC followed no signs of distress have been noted. Pt's mood would swing through out the day. Endorsed to the night nurse.
[2019-06-10 21:10] VITALS: BP 98/66
[2019-06-10 23:05] VITALS: BP 98/66
[2019-06-11 04:15] VITALS: BP 114/74
--- NOTE | 2019-06-11 06:11 | NUR ---
assumed care of pt @1900. pt a&ox4. pt is bedrest but able to reposition self in bed. pt was very irritable with staff overnight. pt had frequent mood swings. pt was requesting for pain meds and he stated that he was told by the doctor that the pain med was as needed. nurse tried to explain to pt that there is a time frame to it, but pt got really upset and "fired nurse". pt was constantly asking for pain meds overnight and was medicated per emar. pt was awake most of the night, singing loud enough that pt's in other rooms were complaining. pt got very angry when nurse told him to please quiet down a bit pt has a wound vac on cont suction @125mmhg. wound vac working but leaking out small amount of serosang fluid. pt was concern about it and requested for it to be changed. RN reinforced dressing and told pt that wound nurse will be contacted to address it in the morning. gandara in place and patent. pt changed colostomy bag. mrsa prec in place
[2019-06-11 08:11] VITALS: BP 98/66
--- NOTE | 2019-06-11 09:37 | NUR ---
OSTOMY CARE; POUCH INTACT, NO LEAKAGE, PT STATES HE CHANGED APPLIANCE HIMSELF YESTERDAY, SOFT BROWN FORMED STOOL NOTED, MORE SUPPLIES PLACED AT BS, WILL CONT TO FOLLOW PRN
--- NOTE | 2019-06-11 16:29 | NUR ---
ABTICIAPTE PT GOING TO [facility] TOMORROW. CM TO FOLLOW INDICATED WITH DC PLANNING.
[2019-06-11 17:35] VITALS: BP 132/67
[2019-06-11 20:04] VITALS: BP 111/68
--- NOTE | 2019-06-11 20:10 | NUR ---
ASSESSMENT COMPLETED.VSS.PT IN BED MOST OF THE TIME SLEEPING ON AND OFF TODAY. C/O GENERALIZED PAIN AND MEDS GIVEN ORDERED WITH RELIEF.DR MCCLURE HERE LATER THIS AFTERNOON,DC WOUND VAC AND REPLACED WITH CHEYENNE CAMERON.HE CALLED COATING AND BAKING OPERATOR AND LET HIM KNOW THAT WOUND VAC SHOULD BE PLACE IN AM.PT MOM HERE TO VISIT,UPDATES GIVEN.WILL CONTINUE TO MONITOR.
--- NOTE | 2019-06-12 02:08 | NUR ---
patient aox4 makes needs known. dressing done on right hip d/t excessive serosariguneius drainage. wound is tunneled and pink in color. pain controlled this shift. patient is non compliant at times with care. patient is able to raise the bed and take down the rails. patient was sitting at the side of the bed, with his legs dangling.patient continues to and yelling at this nurse when he was been reeducated on fall risk precaution. patient on isolation for mrsa on the right hip.patient needs met this shift. patient is able to turn himself.fall precaution in place. patient in bed asleep at this time breathing regular and unlaboured.
[2019-06-12 08:22] VITALS: BP 101/61
--- NOTE | 2019-06-12 10:28 | NUR ---
OSTOMY CARE PT REQUESTED ASSIST W/ POUCH CHANGE, STOMA PINK VIABLE SLIGHTLY EDEMATOUS, PERISTOMAL SKIN INTACT, LARGE AMT SOFT MUSHY BROWN STOOL, NEW POUCH YANY 2 PIECE SYSTEM APPLIED, COOPERATIVE W/ CARE, SUPPLIES AT , REFRIGERATED CARGO CLERK INFORMED OF CARE
--- NOTE | 2019-06-12 14:22 | NUR ---
WOUND CARE FOLLOW UP; WOUND BED TISSUE OVERALL IMPROVEMENT IN QUALITY WITH A CLEAN WOUND BED. THE TUNNEL AT 2:OO IS SMALLER, DEPTH REMAINS 6.0 APPROX. THIS PATIENT HAS HAD VAC THERAPY THIS ADMISSION. RECOMMENDATION; PIC TAKE PRIOR TO D/C, APPLIED A SILVER ALGINATE,AND SECURED WITH TAPE. DISCUSSED WITH ITZEL
[2019-06-12] MEDS ORDERED: MIRALAX17 GM PO (14:55)
[2019-06-12] MEDS ORDERED: MERREM1 GM IVPB (14:55)
--- NOTE | 2019-06-12 15:47 | NUR ---
DISCHARGE ORDERS COMPLETED. PATIENT DISCHARING TO [facility] FOR POST ACUTE CARE NEEDS. DISCHARGE ORDERS, DISCHARGE SUMMARY, AND PATIENT CLNICAL INFORMATION FAXED TO [employer] [facility] [employer], FOR MEDICAID SAME DAY AUTHORIZATION PROCESS. JONATAN TO PROCESS AND NOTIFY CM ONCE MEDICAID AUTH OBTAINED. PATIENT WILL NEED [facility]SPORT[facility] SET UP ONCE PROVIDER AUTHORIZATION HAS BEEN OBTAINED. [facility] CONTACT NUMBER FOR FACILITY TO FACILITY IS , PLEASE HAVE PATIENT FACESHEET PRESENT WHEN MAKING TRANSPORTATION ARRANGEMENTS. [facility] CONTACT NUMBER IS [phone]. [facility] ADDRESS [address], [facility], [address]. [employer] FORM COMPLETED AND FAXED PER UNIT SW AND PLACED ON PATIENTS CHART BACKUP TRANSPORTATION SHOULD [facility] NOT BE ABLE TO TRANSPORT PATIENT TO [facility]. [facility] DISPATCH CONTACT NUMBER IS [phone]. THANK YOU
--- NOTE | 2019-06-12 19:08 | NUR ---
Assumed pt care this am, pt demands he gets IV pain meds on time and in a certain way. Educated the pt. Wound care and pictures done by the wound care team. Colostomy care done by the pt, no signs of infection noted. POC follwed, jassi care given. DC orders given, pt to transfer to [facility]. CAlled out for report left a vm to call back since they are not avaulable, pick is between 5 - 8 pm (3 hour) window. Endorsed to the night nurse.
--- NOTE | 2019-06-12 20:04 | NUR ---
discharge Pt discharged to [facility] via ems transport. Pt. discharge packet, and personal belongings sent with pt. Day shift called to give report awaiting return call.
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
== END 2019-06-12 19:50 | DRG 853 ==
LOC: ER 04:41 → EROBS 07:53 → 4W 08:43
PROVIDERS: Emergency Medicine; Internal Medicine Infectious Disease; Nurse Practitioner Acute Care; ADMIT Hospitalist
PROC: 05HY33Z Insertion of Infusion Device into Upper Vein, Percutaneous Approach (ICD-10-PCS; principal; 2019-06-08)
PROC: 0QD Lower Bones, Extraction (ICD-10-PCS; 2019-06-09)
DX: A41.9 Sepsis, unspecified organism (principal); L89.214 Pressure ulcer of right hip, stage 4; E43 Unspecified severe protein-calorie malnutrition; G82.20 Paraplegia, unspecified; N39.0 Urinary tract infection, site not specified; M86.9 Osteomyelitis, unspecified; M00.9 Pyogenic arthritis, unspecified; M86.8X8 Other osteomyelitis, other site; Z68.1 Body mass index [BMI] 19.9 or less, adult; I10 Essential (primary) hypertension; N31.9 Neuromuscular dysfunction of bladder, unspecified; G51.0 Bell's palsy; Z93.3 Colostomy status; Z88.1 Allergy status to other antibiotic agents; Z87.891 Personal history of nicotine dependence; Z82.49 Family history of ischemic heart disease and other diseases of the circulatory system; Z83.3 Family history of diabetes mellitus; Z99.3 Dependence on wheelchair; Z23 Encounter for immunization
CPT/HCPCS: 10040; 27000; 50010; 50101; 50386; 50417; 57103; 62110; 62900; 70005

== ENCOUNTER → 2019-08-17 | Outpatient (CLI) | payer OTHER ==
[~2019-08-17] MED LIST changes: +MERREM1 GM IVPB
== END ==
LOC: HYPER 09:22
DX: L89.313 Pressure ulcer of right buttock, stage 3 (principal); G82.21 Paraplegia, complete; I10 Essential (primary) hypertension; M19.90 Unspecified osteoarthritis, unspecified site; Z87.891 Personal history of nicotine dependence

== ENCOUNTER 2019-08-21 18:19 | Emergency (ER) | payer OTHER ==
[~2019-08-21] VITALS: Ht 182.9 cm; Wt 61.2 kg
[2019-08-21 20:12] LABS: URINE BILIRUBIN NEGATIVE (Negative); URINE BLOOD 2+ (Negative); URINE CLARITY CLOUDY; URINE COLOR YELLOW; URINE GLUCOSE-RANDOM* NEGATIVE (Negative); URINE KETONES NEGATIVE (Negative); URINE LEUKOCYTES-REFLEX 3+ (Negative); URINE NITRITE-REFLEX POSITIVE (Negative); URINE PROTEIN (DIPSTICK) TRACE (Negative); URINE SPECIFIC GRAVITY <= 1.005 (1.005-1.035); URINE UROBILINOGEN 0.2 E.U./dl (0.2-1.0)
[2019-08-21 20:19] LABS: SQUAMOUS 0-3 Few /LPF (0-3)
[2019-08-21 20:20] LABS: BACTERIA-REFLEX >30 Many /HPF (None Seen); URINE WBC-REFLEX >25 Many /HPF (0-5)
[2019-08-21 20:21] LABS: CASTS None Seen /LPF (None Seen); CRYSTALS None Seen /LPF (None Seen); URINE RBC 3-10 Few /HPF (0-2)
[2019-08-21] MEDS ORDERED: KEFLEX500 M2 PO (20:28)
[2019-08-22 01:50] VITALS: BP 129/79
== END 2019-08-22 01:40 | disposition short-term general hospital (02) ==
LOC: ER 18:19
PROVIDERS: Physician Assistant
DX: T83.511A Infection and inflammatory reaction due to indwelling urethral catheter, initial encounter (principal); Y92.89 Other specified places as the place of occurrence of the external cause

== ENCOUNTER → 2019-09-04 | Outpatient (CLI) | payer OTHER ==
[~2019-09-04] MED LIST changes: +KEFLEX500 M2 PO
== END ==
LOC: HYPER 10:03
DX: L89.313 Pressure ulcer of right buttock, stage 3 (principal); G82.21 Paraplegia, complete; I10 Essential (primary) hypertension; M19.90 Unspecified osteoarthritis, unspecified site; Z87.891 Personal history of nicotine dependence

== ENCOUNTER → 2019-10-21 | Outpatient (CLI) | payer OTHER | LOC: HYPER 13:40 | DX: L89.314 Pressure ulcer of right buttock, stage 4 (principal); G82.21 Paraplegia, complete; I10 Essential (primary) hypertension; M19.90 Unspecified osteoarthritis, unspecified site; F19.10 Other psychoactive substance abuse, uncomplicated; Z87.891 Personal history of nicotine dependence ==

== ENCOUNTER → 2019-11-17 | Outpatient (CLI) | payer OTHER | LOC: HYPER 12:59 | DX: L89.313 Pressure ulcer of right buttock, stage 3 (principal); G82.21 Paraplegia, complete; E46 Unspecified protein-calorie malnutrition; I10 Essential (primary) hypertension; M19.90 Unspecified osteoarthritis, unspecified site; F14.10 Cocaine abuse, uncomplicated; F12.10 Cannabis abuse, uncomplicated; Z87.891 Personal history of nicotine dependence ==

== ENCOUNTER 2020-05-30 14:38 | Inpatient (IN) | payer OTHER ==
[~2020-05-30] VITALS: Ht 182.9 cm; Wt 61.9 kg
[2020-05-30 14:38] VITALS: BP 105/66
[2020-05-30 16:33] LABS: HEMATOCRIT 26.9 % (42.0-52.0); HEMOGLOBIN 8.7 gm/dL (14.0-18.0); MCH 24.6 pg (26.0-34.0); MCHC 32.2 g/dL (28.0-37.0); MCV 76.2 fL (80.0-100.0); PLATELET COUNT 511 thou/uL (150-400); RBC 3.53 mil/uL (4.50-6.00); RDW 16.5 % (10.5-14.5)
[2020-05-30 16:47] LABS: ALBUMIN 1.9 g/dL (3.4-5.0); CALCIUM 8.4 mg/dL (8.5-10.1); CREATININE 0.9 mg/dL (0.7-1.3); POTASSIUM 4.6 mmol/L (3.5-5.1); TOTAL BILIRUBIN 0.3 mg/dL (0.2-1.0); TOTAL PROTEIN 8.7 g/dL (6.4-8.2)
--- NOTE | 2020-05-30 16:53 | NUR ---
- MOTHER - KALLIE BO - [facility] UPDATE [phone] (HOME)
[2020-05-30 17:02] LABS: ABSOLUTE NEUTROPHILS 21.9 thou/uL (1.4-8.2); METAMYELOCYTES 1 %; PLATELET ESTIMATE NORMAL
[2020-05-31] VITALS (8 sets, daily range): BP systolic 93–158; BP diastolic 57–99
--- NOTE | 2020-05-31 02:13 | NUR ---
Admission history and assessments completed. Careplan initiated. COVID antibody tsting. PCR done in ED, resukts pending. Patient placed on enhaced isolation pending results.
[2020-05-31 06:47] LABS: HEMATOCRIT 24.8 % (42.0-52.0); HEMOGLOBIN 7.8 gm/dL (14.0-18.0); MCHC 31.4 g/dL (28.0-37.0); MCV 76.2 fL (80.0-100.0); RBC 3.25 mil/uL (4.50-6.00); RDW 16.7 % (10.5-14.5); WBC 25.4 thou/uL (4.0-11.0)
[2020-05-31 07:15] LABS: MAGNESIUM 2.1 mg/dL (1.8-2.4); POTASSIUM 4.4 mmol/L (3.5-5.1)
[2020-05-31 09:26] LABS: URINE BILIRUBIN NEGATIVE (Negative); URINE BLOOD TRACE (Negative); URINE CLARITY CLEAR; URINE COLOR YELLOW; URINE GLUCOSE-RANDOM* NEGATIVE (Negative); URINE KETONES 1+ (Negative); URINE NITRITE-REFLEX NEGATIVE (Negative); URINE PROTEIN (DIPSTICK) TRACE (Negative); URINE SPECIFIC GRAVITY 1.025 (1.005-1.035)
[2020-05-31 09:59] LABS: URINE LEUKOCYTES-REFLEX 2+ (Negative)
[2020-05-31 10:01] LABS: BACTERIA-REFLEX 1-9 Few /HPF (None Seen); CRYSTALS None Seen /LPF (None Seen); SQUAMOUS 4-10 Moderate /LPF (0-3); URINE RBC None Seen /HPF (0-2); URINE WBC-REFLEX >25 Many /HPF (0-5)
--- NOTE | 2020-05-31 14:51 | NUR ---
ASSUMED CARE APPROX 0700. PT ALERT AND ORIENTED X4. ASSESSMENTS CHARTED AND VSS. PT AFEBRILE THIS SHIFT. ON ROOM AIR W/O SIGNS OF DISTRESS NOTED. PT DENIES CHEST PAIN. DOES C/O MILD LEG PAIN 3/10 ON PAIN SCALE. MOSTLY SLEEPING TODAY. SR ON TELE MONITOR. PT TO BE TX TO 2N AND REPORT GIVEN TO
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
--- NOTE | 2020-05-31 16:14 | NUR ---
PT TRANSFERED TO THE UNIT FROM [facility] VIA BED - ORIENTED TO ROOM AND BEDSPACE - ASSESSMENT CHARTED - NO CO'S OF PAIN OR NAUSEA. ALLIE NECTAR THICK LIQUIDS - DAUGHTER INTO SEE PATIENT THIS AFTERNOON. O2 REMAINS AT 2 L NC. STATES RESTING COMFORTABLY AT THE PRESENT TIME.
--- NOTE | 2020-05-31 16:19 | NUR ---
PT TRANSFERED TO THE UNIT FROM [facility] VIA BED. IV FLUIDS CONTINUE ORDERED. ASSESSMENT CHARTED - PT ORIENTED TO ROOM AND BEDSPACE. NO CO'S OF PAIN OR NAUSEA. REMAINS ON BEDREST. PT APPEARS TO BE RESTING COMFORTABLY AT THE PRESENT TIME.
[2020-06-01 01:08] VITALS: BP 149/82
--- NOTE | 2020-06-01 02:10 | NUR ---
ASSUMED CARE FROM DAY SHIFT IV LINE CLOTTED OFF, PT CLOSTOMY BAG OFF AND PT COVERED IN STOOL , BED BATH GIVEN NEW COLOSTOMY PLACED AND ATTEMPTED TO PLACE IV LINE UNSUCESSFUL ,NURSING DISABILITY INSURANCE HEARING OFFICER ATTEMPTED ALSO AND UNSUCESSFUL, CONSTRUCTION CONSULTANT CESARIO NOTIFIED OF IV STATUS WILL HAVE IV TEAM PLACE IV LINE IN AM.
[2020-06-01 08:00] VITALS: BP 100/57
[2020-06-01 11:53] VITALS: BP 82/59
--- NOTE | 2020-06-01 18:00 | NUR ---
ASSUMED CARE AT SHIFT CHANGE, ALERT AND ORIENTED X4, AND SLEPT MOST OF THE DAY. FEBRILE 102.4 MEDICATED AND DOWN TO 98.3.OTHER VSS. WOUND CARE WAS DONE, Q2 TURN FOR COMFORT, AND WILL CONTINUE WITH POC.
[2020-06-01 19:50] VITALS: BP 121/81
--- NOTE | 2020-06-02 02:17 | NUR ---
ASSUMED CARE OF PATIENT AT 1900. WOUND CARE COMPLETED. PATIENT DENIED PAIN AT TIME OF ASSESSMENT BUT DID C/O SEVERED SPASMS. ADMINISTERED PRN BACLOFEN ORDERED AT APPROXIMATELY 2100. PATIENT AGAIN C/O MUSCLE SPASMS AT 0230. UNABLE TO ADMINISTER PRN BACLOFEN AT THAT TIME ONLY Q8H.
[2020-06-02 04:00] VITALS: BP 95/60
[2020-06-02 07:57] VITALS: BP 86/52
[2020-06-02 11:11] VITALS: BP 91/54
--- NOTE | 2020-06-02 12:25 | NUR ---
Case discussed with the care team. Pt now on CCU and being treated for UTI and thigh wound abcess. On iv atb, cult pending, and picc line placed. Surgical eval pending for possible intervention of his thigh wound. Dc timeframe is uncertain. Will continue to follow for dc planning.
--- NOTE | 2020-06-02 12:43 | NUR ---
CONSULTED TO PLACE A PICC FOR A PATIENT NEEDING IV ACCESS FOR IV ANTIBIOTICS. ORDER AND CONSENT NOTED. THE PROCEDUSRE WELL BENIFITS AND RISK FOR INFECTION AND DVT DISCUSSED. THE RIGHT BRACHIAL VEIN WAS WIDLEY PATIENT. A #5F DOUBLE LUMEN POWER PICC WAS PLACED PER HOSPITAL POLICY. LINE WAS TRIMMED TO 36CM AND ADVANCED WITHOUT DIFFICULTY. A STAT CHEST XRAY CONFIRMED LINE IN ADEQUATE POSITION- CCU STAFF NOTIFIED THAT LINE IS RELEASED FOR USE
[2020-06-02 12:49] LABS: HEMOGLOBIN 6.8 gm/dL (14.0-18.0)
[2020-06-02 12:50] LABS: HEMATOCRIT 21.6 % (42.0-52.0); MCH 24.4 pg (26.0-34.0); MCHC 31.5 g/dL (28.0-37.0); MCV 77.4 fL (80.0-100.0); RBC 2.79 mil/uL (4.50-6.00); RDW 17.3 % (10.5-14.5); WBC 26.6 thou/uL (4.0-11.0)
[2020-06-02 13:03] LABS: CALCIUM 7.7 mg/dL (8.5-10.1); CREATININE 1.1 mg/dL (0.7-1.3); POTASSIUM 4.1 mmol/L (3.5-5.1)
[2020-06-02 15:38] VITALS: BP 117/71
--- NOTE | 2020-06-02 19:43 | NUR ---
ASSUMED CARE AT SHIFT CHANGE, ALERT AND ORIENTED X4. ASSESSMENT DOCUMENTED. TEMP 102.2, MEDICATED INDICATED. OLEARY TO DD , AND CLOSTOMY BAG INSTCT INPLACE. AND WILL CONTINUE WITH POC.
[2020-06-02 20:05] VITALS: BP 101/63
[2020-06-03 01:17] VITALS: BP 114/63
--- NOTE | 2020-06-03 04:25 | NUR ---
ASSESSMENT DOCUMENTED.PT BEEN RESTING IN NO ACUTE DISTRESS.A/OX4.VSS.PT HAD FEVER THAT WAS CONTROLLED WITH TYLENOL.DENIES PAIN.SR/STACHY ON MONITOR.WOUND CARE COMPLETED,PT TOLERATED WELL.NPO AFTER MIDNOC FOR WOUND SURGERY THIS AM.CONSENT FORM HAS BEEN SIGNED.ANTIBIOTICS INFUSED ORDERED.NO ADVERSE EFFECTS.NO CONCERNS VOICED.
[2020-06-03 04:26] VITALS: BP 106/67
[2020-06-03 06:10] LABS: CREATININE 0.9 mg/dL (0.7-1.3); HEMATOCRIT 21.5 % (42.0-52.0); HEMOGLOBIN 6.8 gm/dL (14.0-18.0); MCH 24.4 pg (26.0-34.0); MCHC 31.5 g/dL (28.0-37.0); MCV 77.4 fL (80.0-100.0); POTASSIUM 4.5 mmol/L (3.5-5.1); RBC 2.77 mil/uL (4.50-6.00); WBC 19.4 thou/uL (4.0-11.0)
[2020-06-03 08:50] VITALS: BP 117/67
[2020-06-03 12:25] VITALS: BP 99/64
[2020-06-03 16:00] VITALS: BP 92/50
--- NOTE | 2020-06-03 16:52 | NUR ---
ASSESSMENT CHARTED. PT ALERT AND ORIENTED. HAD DEBRIDEMENT TODAY. PRN MUSCLE SPASM GIVEN WITH PARTIAL RELIEF. NPO AFTER MIDNIGHT FOR ABSCESS DRAINAGE IN AM. NO CONCERNS AT THIS TIME.
[2020-06-03 23:32] VITALS: BP 116/70
--- NOTE | 2020-06-04 04:30 | NUR ---
PT IS ALERT AND ORIENTED.TYLENOL GIVEN FOR TEMP OF 103, RELIEF OBTAINED. R BUTTOCK WOUND DRSG CHANGE COMPLETED. PT TOLERATED THAT WELL. WOUND WITH SEROSANGUINOUS DRAINAGE. JOÃO HEELS OFFLOADED.NPO FOR I/D OF R THIGH ABCESS.CALL LIGHT WITHIN REACH.
[2020-06-04 06:06] LABS: HEMATOCRIT 24.3 % (42.0-52.0); HEMOGLOBIN 7.7 gm/dL (14.0-18.0); MCH 24.4 pg (26.0-34.0); MCHC 31.6 g/dL (28.0-37.0); MCV 77.3 fL (80.0-100.0); RBC 3.14 mil/uL (4.50-6.00); RDW 17.2 % (10.5-14.5); WBC 27.1 thou/uL (4.0-11.0)
[2020-06-04 06:42] LABS: CALCIUM 7.6 mg/dL (8.5-10.1)
--- NOTE | 2020-06-04 10:38 | NUR ---
discussed during prime time while he on 4s, he from ccu and will need thigh debridement. no weekend dc. will cont following as needed for dc needs.
[2020-06-04 17:35] VITALS: BP 114/68
--- NOTE | 2020-06-04 18:04 | NUR ---
Assumed care of pt. at 0700. Pt. was taken down for debriedment surgery around 8am. Pt. returned AOx4. Dressing changes performed. Pt. does not complain of pain. Fall percautions in place.
[2020-06-04 20:00] VITALS: BP 100/67
--- NOTE | 2020-06-05 01:00 | NUR ---
ASSESMENT COMPLETED. PT GIVEN A FULL BATH. DRSG CHANGED TO R BUTTOCK WOUND. WOUND VAC INTACT TO R THIGH. SCDS IN PLACE. OLEARY TO D/D DRAINING WELL.TMAX OF 100.0, GIVEN TYLENOL WITH IMPROVEMENT.BLE ELEVATED. PT ON MANDO. HE REPOSITIONS SELF WELL IN BED. COLOSTOMY BAG CHANGED. STOMA LOOKS OKAY. SEMI FORMED BROWN STOOL NOTED.CALS WITH NEEDS. TENDS TO YELL OUT AND CUSS FOR NO PARTICULAR REASON.
[2020-06-05 09:22] VITALS: BP 100/66
[2020-06-05 16:10] VITALS: BP 103/73
--- NOTE | 2020-06-05 18:19 | NUR ---
PATIENT NOTED THIS PM TO HAVE ORDERS FOR ISOLATION DUE TO MRSA OF URINE. HE DENIES PAIN AT TIME. NEW COLOSGTOMY APPLIED EARLIER. WILL BE MOVED TO A NEW ROOM IN 4W ONCE ROOM IS CLEAN. WILL CONT WITH PLAN OF CARE.
[2020-06-05 19:47] VITALS: BP 106/72
[2020-06-06 06:04] LABS: HEMOGLOBIN 6.9 gm/dL (14.0-18.0); MCH 25.2 pg (26.0-34.0); MCV 77.9 fL (80.0-100.0); RBC 2.75 mil/uL (4.50-6.00)
[2020-06-06 06:08] LABS: HEMATOCRIT 21.4 % (42.0-52.0); MCHC 32.3 g/dL (28.0-37.0); RDW 17.4 % (10.5-14.5)
[2020-06-06 06:16] LABS: WBC 10.6 thou/uL (4.0-11.0)
[2020-06-06 06:20] LABS: CALCIUM 7.9 mg/dL (8.5-10.1); POTASSIUM 4.9 mmol/L (3.5-5.1)
--- NOTE | 2020-06-06 07:17 | O ---
[facility] [place] [address] [place] [address] OPERATIVE REPORT Name: ANAIADOLFO Myrna Room #: 452-P ADM IN M.R.#: [id number] Admission: 05/30/20 Attend Phys: Jc Reddy MD Discharge: Date of : 76 Report #: [id number] THIS REPORT FOR: cc: [facility] - Clinic physician unknown [facility] - Clinic physician unknown Raffaele Marsh MD ~ CC: Jc Reddy [facility] unknown DATE OF SERVICE: 06/04/2020 PREOPERATIVE DIAGNOSIS: Abscess, right thigh. POSTOPERATIVE DIAGNOSIS: Abscess, right thigh. PROCEDURE: Open incision, drainage, irrigation and lavage, and application of suction wound VAC, right thigh abscess. SURGEON: Raffaele Marsh MD INDICATIONS: This 39-year-old gentleman is a paraplegic and has had chronic problems with decubitus ulcers. He has a chronic sacral and ischial decubitus ulcer, which was debrided just yesterday. He also has MRI evidence of a large fluid collection in the medial aspect of the right thigh. This seems consistent with a separate abscess and he is returned to the operating room for irrigation and debridement. DESCRIPTION OF PROCEDURE: The patient was taken to the operating room where he was placed under general anesthesia. A small skin incision was made over the anteromedial upper thigh, overlying an area of prominence and induration. The wound was probed manually and an obvious abscess was entered. The skin incision was enlarged to allow better access and more full irrigation and debridement. A large amount of abscess fluid and debris was evacuated, probably totaling 600-800 mL. The cavity was then aggressively irrigated with pulsatile lavage. At the conclusion, the muscle and subcutaneous tissues appeared to be viable. There was no evidence of other areas of necrosis or debris. A wound VAC was then placed on the wound and sealed nicely. The patient was then awakened and returned to the recovery room in good condition. <ELECTRONICALLY SIGNED> By: Raffaele Marsh MD 06/06/20 0717 1000 [id number] Raffaele Marsh MD /nt
[2020-06-06 09:47] VITALS: BP 104/73
--- NOTE | 2020-06-06 14:17 | NUR ---
THIS AM CARE TEAM INDICATED THAT NEEDED LTAC FROM WC AND IV ABX. CM CALLED AND SPOKE WITH PT AT BEDSIDE THIS AM. CM HAD SEEN THAT PT HAD BEEN TO [facility], [facility], AND [facility] IN THE PAST. CM ASKED IF/AND WHERE PT WOULD BE INTERESTED INF GOING FOR LTAC. PT INDICATED HE DIDN'T WANT TO GO TO [facility] AND HE HAD ISSUE WITH A NURSE THERE AND LEFT AMA, SAME AT [facility].. AND HE JUST DIDN'T WANT TO GO TO LTAC. CM ASKED IF PT WOULD BE INTERESTED IN GOING TO [facility] AND PT SAID NO. PT INDICATED HE HAD [facility] IN PAST AND WOULD BE INTERESTED IN SEEING WHAT HOME INFUSION WOULD COST HIM. HE WAS AGREEABLE WITH [facility] AND TO [facility] FOR BENEFIT COVERAGE FOR HOME INFUSION. CM FAXED REFERRALS. AWAITING RESPONSE. CM TO FOLLOW INDICATED WITH DC PLANNING.
[2020-06-06 20:21] VITALS: BP 104/76
--- NOTE | 2020-06-07 04:58 | NUR ---
Assumed pt care at 1900. A/OX4,VSS. Denies pain on assessment,just muscle spasms medicated per EMAR with relief reported. Wound care done to right buttocks w/o problems,woundvac in place on right thigh continous suctioning at 125mmHg. Colostomy in place and functional,gandara patent to dependent drainage with light yellow urine. Pt able to reposition self in bed as needed,on a MANDO mattress. PICC line in place on RUE and patent. Fall precautions in place,calls approp for help.
[2020-06-07 07:00] VITALS: BP 104/67
[2020-06-07 08:56] VITALS: BP 104/67
--- NOTE | 2020-06-07 12:08 | NUR ---
PT STILL REFUSING LTAC LEVEL OF CARE. PHYSICIAN INDICATED THAT HE WILL DISCHARGE PT HOME WITH IV INFUSION AND WOUND VAC. CM SENT UPDATED IV ABX RECS TO [facility]. CM NOTIFIED TEAM JARROD AND NELI THAT PT WILL NEED A WOUND VAC FOR HOME USE, AWAITING RESPONSE. CM TO CALL AND NOTIFY PT'S MOTHER SHE HAD CALLED THIS AM AND EXPRESSED CONCERN ABOUTPT RETURNING HOME WITH IV ABX. CM TOO NOTIFY [facility] OF POSSIBLE DC HOME THIS DAY. CM TO FOLLOW INDICATED WITH ANTICPATED DC HOME THIS DAY.
[2020-06-07] MEDS ORDERED: CUBICIN500 MG IVPB (12:39)
--- NOTE | 2020-06-07 12:48 | NUR ---
Received awake on bed. Due medications given as prescribed, able to swallow meds w/o difficulty. On room air. Vital signs stable. Paraplegic, assisted in ADLs. On MS, not on telemetry; no complains and signs of chest pain, crushing sensation and heaviness. On heart healthy diet- tolerating well; no nausea, no vomiting and no abdominal pain noted. With colostomy bag in place- output measured and recorded accordingly; changed bag today. With chronic gandara in place- output measured and recorded accordingly. With double lumen PICC line at R upper arm- dressing C/D/I, flushing well; on IV antbiotics. With R thigh wound- wound vac in place, on continous settings; no leak noted. Wuth R gluteal wound- dressing C/D/I. No fever noted. Falls bundle in place. Pt seen and examined by Dr Lazo this AM, discharge orders made- a/w CM advise re: discharge disposition; wound care informed re wound vac. To continue monitoring patient.
[2020-06-07 13:43] VITALS: BP 110/75
[2020-06-07 14:20] VITALS: BP 110/75
--- NOTE | 2020-06-07 17:06 | PATH ---
[facility] [address] [place] [address] PATHOLOGY RPT PROCEDURE Name: ADOLFO OSPINA Room #: 452-P ADM IN M.R.#: [id number] Admission: 05/30/20 Date of : 76 Discharge: Report #: [id number] Path Case #: [id number] [facility] Accession Number: [id number] . 01 Material submitted: . PART A: gluteal cleft - RIGHT GLUTEAL TISSUE. Modifiers: right PART B: gluteal cleft - RIGHT GLUTEAL BONE. Modifiers: right . 01 Clinical history: . UTI FAILED OUTPATIENT, RIGHT HIP WOUND ABSCESS . 02 Diagnosis: A. Right gluteal tissue, debridement: - Ulceration along with gangrenous necrosis and marked acute inflammation. . B. Right gluteal bone, debridement: - Fragments of bone with acute osteomyelitis and osteonecrosis. (IUV/db; 06/07/2020) LBQ 06/07/2020 1426 Local . 02 Electronically signed: . Maureen Washington MD, Pathologist NPI- [id number] . 01 Gross description: . A. The specimen is received in formalin, labeled "Adolfo Ospina, right gluteal tissue". Received are multiple segments of alcantar-brown to necrotic-appearing skin with attached underlying soft tissue measuring 7.8 x 6.1 x 2.5 cm in aggregate dimensions. The specimen is submitted representatively in cassette A1. . B. The specimen is received in formalin, labeled "Adolfo Ospina, right gluteal bone". Received are multiple segments of pale silva soft tissue admixed with fragments of bone measuring 4.2 x 3.8 x 0.9 cm in aggregate dimensions. The specimen is submitted representatively in cassette B1, following light decalcification. (CAA; 06/06/2020) QA/QA 06/06/2020 1509 Local . 02 Pathologist provided ICD-10: L98.419, I96, L98.9, M86.10, M87.9 . 02 CPT . 476219, 121427, [id number] Specimen Comment: A courtesy copy of this report has been sent to [phone] Specimen Comment: [phone] [place] [address] PATHOLOGY RPT PROCEDURE Name: ADOLFO OSPINA Room #: 452-P ADM IN M.R.#: [id number] Admission: 05/30/20 Date of : 76 Discharge: Report #: [id number] Path Case #: [id number] Specimen Comment: Report sent to / DR MCKENZIE Performed at: [address], [place], [place] [id number] MD Claus Lindsey MD Phone: [phone] Performed at: [address], [place], [place] [id number] MD Maureen Washington MD Phone: [phone]
== END 2020-06-07 17:30 | disposition home health service (06) | DRG 853 ==
LOC: ER 14:38 → 2N 19:13 → EROBS 19:13 → 3W 05-31 00:48 → 2N 05-31 14:30 → 4S 06-03 18:24 → 4W 06-05 19:32
PROVIDERS: Emergency Medicine; Hospitalist; Nurse Practitioner Family; Surgery; ADMIT Hospitalist; ATTEND Hospitalist
PROC: 0HRHXK3 Replacement of Right Upper Leg Skin with Nonautologous Tissue Substitute, Full Thickness, External Approach (ICD-10-PCS; principal; 2020-06-03)
PROC: 0QB60ZZ Excision of Right Upper Femur, Open Approach (ICD-10-PCS; principal; 2020-06-03)
PROC: 0QD Lower Bones, Extraction (ICD-10-PCS; principal; 2020-06-03)
PROC: 30233N1 Transfusion of Nonautologous Red Blood Cells into Peripheral Vein, Percutaneous Approach (ICD-10-PCS; principal; 2020-06-03)
PROC: 0K9Q0ZZ Drainage of Right Upper Leg Muscle, Open Approach (ICD-10-PCS; 2020-06-04)
DX: A41.9 Sepsis, unspecified organism (principal); L89.214 Pressure ulcer of right hip, stage 4; E43 Unspecified severe protein-calorie malnutrition; G82.20 Paraplegia, unspecified; N39.0 Urinary tract infection, site not specified; L02.415 Cutaneous abscess of right lower limb; Z20.828 Contact with and (suspected) exposure to other viral communicable diseases; I10 Essential (primary) hypertension; N31.9 Neuromuscular dysfunction of bladder, unspecified; Z93.3 Colostomy status; Z79.899 Other long term (current) drug therapy; Z88.1 Allergy status to other antibiotic agents; Z74.01 Bed confinement status; Z68.1 Body mass index [BMI] 19.9 or less, adult; Z83.3 Family history of diabetes mellitus; Z82.49 Family history of ischemic heart disease and other diseases of the circulatory system; Z87.891 Personal history of nicotine dependence; Z80.8 Family history of malignant neoplasm of other organs or systems
CPT/HCPCS: 10040; 10081; 10100; 10195; 27000; 50010; 50101; 50366; 50386; 50403; 53078; 57091; 57103; 57119; 57120; 57192; 62110; 62900; 65090; 70005